=== PATIENT | female | born 1950 | race Caucasian/White ===

== ENCOUNTER 2023-03-19 18:07 | Inpatient (IN) ==
[2023-03-19] MEDS ORDERED: SODIUM CHLORIDE 0.9% 1000ML 1,000 ML IV ONE ×2 (18:43→19:22)
[2023-03-19 18:57] LABS: Basophils # (auto) 0.09 K/uL (0-0.2); Basophils % (auto) 0.5 %; Eosinophils # (auto) 0.12 K/uL (0-0.50); Eosinophils % (auto) 0.7 %; Hematocrit (blood only) 36.9 % (37.0-47.0); Hemoglobin 11.7 g/dl (12.0-16.0); Immature Granulocytes # (auto) 0.13 K/uL (0.01-0.20); Immature Granulocytes % (auto) 0.7 %; Lymphocytes % (auto) 1.6 %; Mean Corpuscular Hemoglobin 25.8 pg (25.0-34.0); Mean Corpuscular Hgb Conc 31.7 g/dL (32.0-36.0); Mean Corpuscular Volume 81.3 fL (80.0-100.0); Mean Platelet Volume 9.5 fL (9.4-12.4); Monocytes # (auto) 1.73 K/uL (0.11-0.59); Monocytes % (auto) 9.4 %; Neutrophils # (auto) 15.96 K/uL (1.40-6.50); Neutrophils % (auto) 87.1 %; Platelet Count 342 K/uL (130-400); RDW Coefficient of Variation 16.2 % (11.5-14.5); Red Blood Count 4.54 M/uL (4.20-5.40); White Blood Count 18.33 K/ul (4.8-10.8)
[2023-03-19 19:14] LABS: Albumin Globulin Ratio 1.1 (0.9-2); Albumin Level 3.8 gm/dl (3.4-5.0); BUN Creatinine Ratio 20.3 (10-20); Bilirubin,Total 0.3 mg/dl (0.2-1.0); Calcium 9.2 mg/dl (8.6-10.3); Creatinine Clr Calc Pharmacy 49.9 ml/min; Est GFR (African American) 54.1 ml/min; Est GFR (Non-African American) 46.7 ml/min; Globulin 3.6 gm/dl (2.5-4.0); Total Protein 7.4 gm/dl (6.0-8.3)
[2023-03-19] MEDS ORDERED: CEFEPIME 2,000 MG/20 ML VIAL IV STA (19:22)
[2023-03-19] MEDS ORDERED: VANCOMYCIN CONSULT ACTIVE PRN (19:22)
[2023-03-19] MEDS ORDERED: VANCOMYCIN HCL 1,750 MG in SODIUM CHLORIDE 0.9% 500 ML IV ONE (19:22)
[2023-03-19] MEDS ORDERED: SODIUM CHLORIDE 0.9% 500 ML IV ONE (20:10)
[2023-03-19] MEDS ORDERED: LACTATED RINGER'S 1,000 ML IV ONE (21:00)
--- NOTE | 2023-03-19 21:02 | Emergency Department Note ---
Impression & Plan Sepsis ED Provider Note INFORMANT: Patient and ED PROVIDER(S): Lester Christiansen MD CHIEF COMPLAINT: Fever PLAN: Disposition: Admitted Condition: Good Outpatient prescription management: none Referral: None MEDICAL DECISION MAKING: Patient presented with a complaint of fever. Her blood pressure was mildly low. Fever was resolved but she did take Tylenol prior to arrival. Sepsis work-up initiated. The patient was found to have a significant leukocytosis. Chemistry panel was unremarkable. Urinalysis is pending. The patient was started on IV fluids and when her blood pressure dropped slightly she was ordered a total that would meet the 30 mL/kg sepsis fluid. The patient was started on IV cefepime and IV vancomycin. She had improvement of her blood pressure. On reassessment she was feeling well. The patient did have an elevated lactate. Repeat lactate was reflexed. The patient had a consultation placed with Dr. Chandler Pierson, [facility]. Case was discussed and diagnostics were reviewed. He evaluated patient in the ER and admitted her for further management. Discussed with custodial operations manager requires admission After review of the information above and other included data, I feel the patient disposition. Triage Nursing notes reviewed and agree them. Vital Signs: reviewed and remarkable for hypotension Prior /Outside records reviewed: Surgery note from discharge today reviewed Differential diagnosis: Sepsis, UTI, pneumonia, metabolic, electrolyte abnormalities, cardiac sources, intracerebral event, toxicologic, neurologic, as well as other pathologies. Diagnostics, as interpreted by me: ECG: none Cardiac Monitoring: Cardiac monitoring ordered by me: The patient was placed on continuous cardiac monitoring and observed. It revealed a normal sinus rhythm at 77 beats per minute without ectopy or evidence of dysrhythmia. Medical decision rules: none Imaging studies: Deferred HPI: The patient is a 72 year old female who presents to the Emergency Room with complaints of fever. Patient had a lithotripsy and stent placement done at [facility] today. She was monitored and stated she did well. They had done for prior procedures on her in urology. The first time she had a procedure done years ago she had developed sepsis afterwards. She noted the last 3 procedures she was observed and did very well without any infectious issues. She was discharged today after doing very well postsurgery and went home. She then took her temperature this afternoon and it was 101.2. She contacted urology and was directed to the emergency department for evaluation due to her history. Patient notes a mild sore throat after anesthesia but otherwise has no other complaints. Pt denies LOC, headache, fevers, chills, diaphoresis, visual changes, neck pain, chest pain, breathing difficulties, nausea, vomiting, abdominal pain, back pain, diarrhea, numbness, focal weakness, lymphadenopathy, rash, or other complaints. PAST MEDICAL HISTORY: See Below, sepsis PAST SURGICAL HISTORY: See Below, SOCIAL HISTORY: See Below, HOME MEDICATIONS: See Below ALLERGIES: See Below VITALS: See Below PHYSICAL EXAMINATION: GENERAL: Awake, alert, tired-appearing, in no distress HENT: Normocephalic, atraumatic. Oropharynx unremarkable. EYES: Normal conjunctiva. Sclera non-icteric. NECK: Inspection normal. Non-tender. Supple. No nuchal rigidity. FROM. No masses. RESPIRATORY: Clear to auscultation. No wheezes. No rales. Normal respiratory effort. CARDIAC: Normal rate. Normal rhythm. No murmurs. No rubs. Extremities warm and well perfused. Pulses equal. No JVD. GI: Soft, non-distended. No tenderness to palpation. No rebound or guarding. No masses. RECTAL: Deferred. MUSCULOSKELETAL: Atraumatic. Chest examination reveals no tenderness. The back is symmetrical on inspection without obvious abnormality. There is no CVA tenderness to palpation. No joint edema. LOWER EXTREMITIES: Calves are equal size bilaterally and non-tender. No edema. No discoloration. NEURO: Normal sensorium. No sensory or motor deficits noted. SKIN: No rash or jaundice noted. CRITICAL CARE: I have personally spent greater than 30 minutes of critical care time in the direct management of this patient. This includes bedside care, interpretation of diagnostic studies, and testing, discussion with consultants, patient, and f amily members, and other required patient management activities. This 30 minutes is in excess of all separately billable procedures. Past Med/Surg History Medical History (Updated 03/19/23 @ 21:02 by Lester Christiansen MD) Chronic erythremia CKD (chronic kidney disease) stage 3, GFR 30-59 ml/min HLD (hyperlipidemia) HTN (hypertension) T2DM (type 2 diabetes mellitus) Surgical History (Updated 03/19/23 @ 21:01 by Meliza Meza PA-C) History of extraction of renal calculus Hx of cataract surgery Hx of tubal ligation Family History (Updated 03/19/23 @ 21:02 by Meliza Meza PA-C) Father Cancer bone cancer Sister Breast cancer Mother Hypertension Social History Smoking Status: Never smoker Hx Alcohol Use: No Hx Substance Use: No Preferred Language: Surinamese marital status: Feels Safe at Home: Yes Allergies Allergies Allergy/AdvReac Type Severity Reaction Status Date / Time cephalexin Allergy Unknown Verified 03/19/23 20:19 Home Meds Home Medications Medication Instructions Recorded Confirmed acetaminophen 325 mg tablet 975 mg PO Q6 PRN mild pain or 03/19/23 03/19/23 fever > 38 C aspirin 81 mg tablet,delayed 81 mg PO DAILY 03/19/23 03/19/23 release empagliflozin 25 mg tablet 25 mg PO DAILY 03/19/23 03/19/23 (Jardiance) fenofibrate nanocrystallized 145 145 mg PO QAM 03/19/23 03/19/23 mg tablet glipizide 10 mg tablet 20 mg PO AMPM 03/19/23 03/19/23 lisinopril 2.5 mg tablet 2.5 mg PO HS 03/19/23 03/19/23 metformin 1,000 mg tablet 1,000 mg PO BIDM 03/19/23 03/19/23 metoprolol tartrate 100 mg tablet 100 mg PO BID 03/19/23 03/19/23 multivitamin 1 tab PO DAILY 03/19/23 03/19/23 naproxen sodium 220 mg capsule 440 mg PO HS 03/19/23 03/19/23 oxybutynin chloride 5 mg tablet 5 mg PO TID PRN Bladder Spasms 03/19/23 03/19/23 rosuvastatin 20 mg tablet 20 mg PO QAM 03/19/23 03/19/23 semaglutide 14 mg tablet (Rybelsus) 14 mg PO DAILYBB 03/19/23 03/19/23 tamsulosin 0.4 mg capsule 0.4 mg PO QAM 03/19/23 03/19/23 Results & Data (ED) Vital Signs Vital Signs - 24 hr 03/19/23 18:23 03/19/23 19:15 03/19/23 19:30 Temperature 36.8 C Temperature Source Oral Pulse Rate 94 H 79 Pulse Rate [Right Apical] 79 Pulse Rate from SpO2 Sensor 79 Respiratory Rate 18 18 20 Respiratory Effort / Characteristics Non-Labored Non-Labored Spontaneous Respiratory Depth Normal Respiratory Pattern Regular Blood Pressure 109/65 89/48 L Blood Pressure [Right Arm] 98/50 L Blood Pressure Mean 79 61 Blood Pressure Mean [Right Arm] 66 Pulse Oximetry 96 94 97 Oxygen Delivery Method Room Air Room Air Room Air Sepsis Recent Fever Within 48 Hours Yes Sepsis New/Unexplained Change in Mental Status N/A Sepsis Action Taken by Nursing No Action Required 03/19/23 19:16 Temperature Temperature Source Pulse Rate 81 Pulse Rate [Right Apical] Pulse Rate from SpO2 Sensor Respiratory Rate Respiratory Effort / Characteristics Respiratory Depth Respiratory Pattern Blood Pressure Blood Pressure [Right Arm] Blood Pressure Mean Blood Pressure Mean [Right Arm] Pulse Oximetry Oxygen Delivery Method Sepsis Recent Fever Within 48 Hours Sepsis New/Unexplained Change in Mental Status Sepsis Action Taken by Nursing Laboratory Data 03/19/23 18:36 03/19/23 18:36 Lab Results 03/19/23 03/19/23 03/19/23 Range/Units 18:36 18:36 19:29 WBC 18.33 H (4.8-10.8) K/ul RBC 4.54 (4.20-5.40) M/uL Hgb 11.7 L (12.0-16.0) g/dl Hct 36.9 L (37.0-47.0) % MCV 81.3 (80.0-100.0) fL MCH 25.8 (25.0-34.0) pg MCHC 31.7 L (32.0-36.0) g/dL RDW Std Deviation 48.0 H (36.4-46.3) fL RDW Coeff of Jomar 16.2 H (11.5-14.5) % Plt Count 342 (130-400) K/uL MPV 9.5 (9.4-12.4) fL Immature Gran % (Auto) 0.7 % Neut % (Auto) 87.1 % Lymph % (Auto) 1.6 % Summers % (Auto) 9.4 % Eos % (Auto) 0.7 % Baso % (Auto) 0.5 % Neut # (Auto) 15.96 H (1.40-6.50) K/uL Lymph # (Auto) 0.30 L (1.2-3.4) K/uL Summers # (Auto) 1.73 H (0.11-0.59) K/uL Eos # (Auto) 0.12 (0-0.50) K/uL Baso # (Auto) 0.09 (0-0.2) K/uL Immature Gran # (Auto) 0.13 (0.01-0.20) K/uL Sodium 138 (136-145) mmol/L Potassium 4.0 (3.5-5.1) mmol/L Chloride 107 (98-107) mmol/L Carbon Dioxide 22 (21-32) mmol/L Anion Gap 9 (3-11) BUN 24 H (6-23) mg/dl Creatinine 1.18 (0.6-1.2) mg/dl Est Cr Clr Drug Dosing 49.9 ml/min Est GFR ( Amer) 54.1 ml/min Est GFR (Non-Af Amer) 46.7 ml/min BUN/Creatinine Ratio 20.3 H (10-20) Glucose 154 H (70-99(Fasting)) mg/dl Lactate 3.1 H* (0.4-2.0) mmol/L Calcium 9.2 (8.6-10.3) mg/dl Total Bilirubin 0.3 (0.2-1.0) mg/dl AST 24 (13-39) U/L ALT 18 (7-52) U/L Alkaline Phosphatase 48 (34-104) U/L Total Protein 7.4 (6.0-8.3) gm/dl Albumin 3.8 (3.4-5.0) gm/dl Globulin 3.6 (2.5-4.0) gm/dl Albumin/Globulin Ratio 1.1 (0.9-2) Administered Medications Vancomycin HCl 1,750 mg/ (Sodium Chloride) 535 mls @ 200 mls/hr IV NOW ONE Stop: 03/19/23 22:02 Last Admin: 03/19/23 20:11 Dose: 200 mls/hr Documented By: ROMEL Discontinued Medications Sodium Chloride (Nss 1000ml) 1,000 mls @ 999 mls/hr IV .Q1H1M ONE Stop: 03/19/23 19:43 Last Infusion: 03/19/23 20:12 Dose: 0 mls/hr Documented By: Admin: 03/19/23 19:18 Dose: 999 mls/hr Documented By: ROMEL Sodium Chloride (Nss 1000ml) 1,000 mls @ 999 mls/hr IV .Q1H1M ONE Stop: 03/19/23 20:22 Last Infusion: 03/19/23 20:33 Dose: 0 mls/hr Documented By: Admin: 03/19/23 19:31 Dose: 999 mls/hr Documented By: ROMEL Cefepime HCl (Maxipime) 2,000 mg in 20 mls @ 5 mls/min IV NOW STA; Protocol Stop: 03/19/23 19:25 Last Admin: 03/19/23 19:31 Dose: 5 mls/min Documented By: ROMEL Sodium Chloride (Nss) 500 mls @ 999 mls/hr IV .Q31M ONE Stop: 03/19/23 20:40 Last Infusion: 03/19/23 20:53 Dose: 0 mls/hr Documented By: Admin: 03/19/23 20:26 Dose: 999 mls/hr Documented By: ROMEL Discharge Plan Visit Data Chief Complaint: Fever Stated Complaint: SURGERY TODAY, FEVER 101 ED Provider: Lester Christiansen Discharge Problem: Sepsis Forms Stand Alone Forms: My [facility] Prescriptions Prescriptions: No Action glipizide 10 mg tablet 20 mg PO AMPM Rx Instructions: take with meals lisinopril 2.5 mg tablet 2.5 mg PO HS rosuvastatin 20 mg tablet 20 mg PO QAM Rybelsus 14 mg tablet 14 mg PO DAILYBB acetaminophen 325 mg tablet 975 mg PO Q6 PRN (Reason: mild pain or fever > 38 C) aspirin [Aspirin Low-Strength] 81 mg Tablet,Delayed Release (Dr/Ec) 81 mg PO DAILY fenofibrate nanocrystallized 145 mg tablet 145 mg PO QAM metformin 1,000 mg tablet 1,000 mg PO BIDM Jardiance 25 mg tablet 25 mg PO DAILY metoprolol tartrate 100 mg tablet 100 mg PO BID tamsulosin 0.4 mg Capsule 0.4 mg PO QAM Rx Instructions: new order oxybutynin chloride 5 mg tablet 5 mg PO TID PRN (Reason: Bladder Spasms) multivitamin [Multi-Vitamin] Tablet 1 tab PO DAILY naproxen sodium 220 mg Capsule 440 mg PO HS Referrals Referrals: Lulu Galvez, DO [Primary Care Provider] -
--- NOTE | 2023-03-19 21:20 | History & Physical Report ---
Date of Service March 19, 2023 Assessment & Plan (1) Sepsis: (2) S/P urological surgery: (3) T2DM (type 2 diabetes mellitus): (4) HTN (hypertension): (5) HLD (hyperlipidemia): (6) CKD (chronic kidney disease) stage 3, GFR 30-59 ml/min: Plan This is a 72-year-old female who has significant past medical history of T2DM, HTN, HLD, CKD stage III, polycythemia vera who presents to ED secondary to fever s/p urologic procedure today. Patient underwent cystourethroscopy with lithotripsy and left stent insertion by Dr. Baylee Momin MD today. Developed fever, today is POD #0. Of significance patient was diagnosed with bilateral renal stones who underwent attempted L PCNL of 02/03/23. They were unable to gain access to kidney and she received b/l ureteral stents. She then developed urosepsis and was admitted to ICU. Cultures at that time returned negative. During that hospital stay she underwent another ureteroscopy on 02/10/23 and d/c next day. She underwent 2nd look ureterscopy on 02/16 with antegrade L ureteroscopy with LL, right ureteroscopy BL stent exchange and d/c on 02/17. She underwent additional stone treatment today. Sepsis S/P urologic procedure - as noted above T2DM - well controlled a1c 6.9 on 01/2023 on regimen of metformin, Jardiance, glipizide, Rybelsus HTN- controlled on lisinopril as OP, low side in ED 2/2 sepsis HLD - statin Patient was seen and examined separately from attending physician Dr. Christopher. Detailed HPI, social, family hx, med rec and physical exam performed undersigned. Please refer to Dr. Schultz attending addendum for detailed assessment and plan. James Meza PA-C 45 minutes was spent assessing patient, performing physical exam and extensive research of patients recent hospitalizations. History of Present Illness Chief Complaint: fever s/p urologic procedure today. Primary Care Provider: Lulu Galvez DO This is a 72-year-old female who has significant past medical history of T2DM, HTN, HLD, CKD stage III, polycythemia vera who presents to ED secondary to fever s/p urologic procedure today. Patient was recently admitted at [facility] on 02/24/2023 for cystoscopy, left ureteroscopic with laser lithotripsy and basket stone removal, left ureteral stent exchange, right ureteral stent removal, left retrograde pyelogram and was performed without complication. On postop day 1 patient was stable for discharge, tolerating a diet and discharged home. Today, 03/19/2023 patient underwent ureteroscopy with lithotripsy and stent exchange on the left. She tolerated the procedure and was discharged home day of surgery. She then developed fever of 101.2. She contacted urology and was directed to come to the ED. She does complain of mild sore throat secondary to anesthesia but otherwise denies any acute concerns. She denies chills, sweats, headache, dizziness, lightheadedness, chest pain, shortness of breath, URI symptoms, nausea, vomiting, abdominal pain, or diarrhea. She does complain of some mild dysuria and hematuria which she states is normal after these procedures. In ED patient met criteria for sepsis with hypotension, leukocytosis and lactic acidosis of 3.1. She received IV fluids which improved patient to normotensive. Allergies Allergy/AdvReac Type Severity Reaction Status Date / Time cephalexin Allergy Unknown Verified 03/19/23 20:19 Home Medications Medication Instructions Recorded Confirmed Type acetaminophen 325 mg tablet 975 mg PO Q6 PRN mild pain or 03/19/23 03/19/23 History fever > 38 C aspirin 81 mg tablet,delayed 81 mg PO DAILY 03/19/23 03/19/23 History release empagliflozin 25 mg tablet 25 mg PO DAILY 03/19/23 03/19/23 History (Jardiance) fenofibrate nanocrystallized 145 145 mg PO QAM 03/19/23 03/19/23 History mg tablet glipizide 10 mg tablet 20 mg PO AMPM 03/19/23 03/19/23 History lisinopril 2.5 mg tablet 2.5 mg PO HS 03/19/23 03/19/23 History metformin 1,000 mg tablet 1,000 mg PO BIDM 03/19/23 03/19/23 History metoprolol tartrate 100 mg tablet 100 mg PO BID 03/19/23 03/19/23 History multivitamin 1 tab PO DAILY 03/19/23 03/19/23 History naproxen sodium 220 mg capsule 440 mg PO HS 03/19/23 03/19/23 History oxybutynin chloride 5 mg tablet 5 mg PO TID PRN Bladder Spasms 03/19/23 03/19/23 History rosuvastatin 20 mg tablet 20 mg PO QAM 03/19/23 03/19/23 History semaglutide 14 mg tablet (Rybelsus) 14 mg PO DAILYBB 03/19/23 03/19/23 History tamsulosin 0.4 mg capsule 0.4 mg PO QAM 03/19/23 03/19/23 History Past Med/Surg History Medical History Chronic erythremia CKD (chronic kidney disease) stage 3, GFR 30-59 ml/min HLD (hyperlipidemia) HTN (hypertension) 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 T2DM (type 2 diabetes mellitus) Surgical History History of extraction of renal calculus Hx of cataract surgery Hx of tubal ligation Family History Father Cancer bone cancer Sister Breast cancer Mother Hypertension Social History Smoking Status: Never smoker Hx Alcohol Use: Yes Alcohol type: wine Hx Substance Use: No Preferred Language: Bangladeshi Communication Ability: Effective Bridge Builder Required: No Beliefs That Will Affect Care: None marital status: Current Living Situation: Spouse Current Living Situation Comment: Lives in a home with Other Information That Helps Us Care for You: No Feels Safe at Home: Yes Safety Concerns: Feels Safe At This Time Assistive Devices: Glasses Review of Systems Review of Systems: All systems reviewed & are unremarkable except as noted in HPI & below Physical Exam Physical Exam: Constitutional: WD/WN, vitals as above, NAD, sitting up in bed, pleasant, conversing easily Head: Normocephalic, Atraumatic Eyes: PERRL, conjunctivae normal, anicteric sclerae ENMT: external ear and nose normal, oropharynx normal Neck: trachea midline, no thyromegaly normal visual inspection Respiratory: normal respiratory effort, lungs clear to auscultation, no wheeze, rales, rhonchi. Normal insp/exp effort, no accessory muscle use Cardiovascular: RRR, no murmur, no edema, bilateral obese legs with va ricosities vessels: no JVD or carotid bruit Chest: normal inspection of chest Abdomen: Obese abdomen, normal bowel sounds, soft, nontender, no hepatosplenomegaly Musculoskeletal: no cyanosis or clubbing, extremities motor strength 5/5 Skin: no rashes, warm and dry normal turgor Neurologic: PERRL, EOMI, accommodation nl, no face palsy, no dysarthria CN's II-XI intact bilaterally and moves all extremities Psychiatric: A+Ox3, euthymic affect Lymphatic: no cervical or axillary lymphadenopathy : deferred Results & Data Results & Data Vital Signs (Past 12 Hours) Vital Signs Temp Pulse Pulse Resp BP BP Pulse Ox 03/19/23 20:56 84 21 101/55 L 95 03/19/23 20:30 75 24 96 03/19/23 20:00 78 33 H 99/58 L 93 03/19/23 19:16 81 03/19/23 19:30 79 20 89/48 L 97 03/19/23 19:15 79 18 98/50 L 94 03/19/23 18:23 36.8 C 94 H 18 109/65 96 O2 Del Method 03/19/23 20:56 Room Air 03/19/23 20:30 03/19/23 20:00 Room Air 03/19/23 19:16 03/19/23 19:30 Room Air 03/19/23 19:15 Room Air 03/19/23 18:23 Room Air Medications Administered Medication List Vancomycin HCl 1,750 mg/ (Sodium Chloride) 535 mls @ 200 mls/hr IV NOW ONE Stop: 03/19/23 22:02 Last Admin: 03/19/23 20:11 Dose: 200 mls/hr Documented By: ROMEL Discontinued Medications Sodium Chloride (Nss 1000ml) 1,000 mls @ 999 mls/hr IV .Q1H1M ONE Stop: 03/19/23 19:43 Last Infusion: 03/19/23 20:12 Dose: 0 mls/hr Documented By: Admin: 03/19/23 19:18 Dose: 999 mls/hr Documented By: ROMEL Sodium Chloride (Nss 1000ml) 1,000 mls @ 999 mls/hr IV .Q1H1M ONE Stop: 03/19/23 20:22 Last Infusion: 03/19/23 20:33 Dose: 0 mls/hr Documented By: Admin: 03/19/23 19:31 Dose: 999 mls/hr Documented By: ROMEL Cefepime HCl (Maxipime) 2,000 mg in 20 mls @ 5 mls/min IV NOW STA; Protocol Stop: 03/19/23 19:25 Last Admin: 03/19/23 19:31 Dose: 5 mls/min Documented By: ROMEL Sodium Chloride (Nss) 500 mls @ 999 mls/hr IV .Q31M ONE Stop: 03/19/23 20:40 Last Infusion: 03/19/23 20:53 Dose: 0 mls/hr Documented By: Admin: 03/19/23 20:26 Dose: 999 mls/hr Documented By: ROMEL COVID-19 Results Results COVID-19 Adm Lab Results: RBC 4.54 M/uL (4.20-5.40) 03/19/23 WBC 18.33 K/ul (4.8-10.8) H 03/19/23 Hgb 11.7 g/dl (12.0-16.0) L 03/19/23 Hct 36.9 % (37.0-47.0) L 03/19/23 Plt Count 342 K/uL (130-400) 03/19/23 Neutrophils (%) (Auto) 87.1 % 03/19/23 Lymphocytes (%) (Auto) 1.6 % 03/19/23 Monocytes # (Auto) 1.73 K/uL (0.11-0.59) H 03/19/23 Eosinophils # (Auto) 0.12 K/uL (0-0.50) 03/19/23 Immature Granulocyte % (Auto) 0.7 % 03/19/23 Neutrophils # (Auto) 15.96 K/uL (1.40-6.50) H 03/19/23 Lymphocytes # (Auto) 0.30 K/uL (1.2-3.4) L 03/19/23 Monocytes # (Auto) 1.73 K/uL (0.11-0.59) H 03/19/23 Eosinophils # (Auto) 0.12 K/uL (0-0.50) 03/19/23 Basophils # (Auto) 0.09 K/uL (0-0.2) 03/19/23 Immature Granulocyte # (Auto) 0.13 K/uL (0.01-0.20) 3 Na 138 mmol/L (136-145) 03/19/23 K 4.0 mmol/L (3.5-5.1) 03/19/23 Cl 107 mmol/L (98-107) 03/19/23 CO2 22 mmol/L (21-32) 03/19/23 Anion Gap 9 (3-11) 03/19/23 BUN 24 mg/dl (6-23) H 03/19/23 Creatinine 1.18 mg/dl (0.6-1.2) 03/19/23 BUN/Creatinine Ratio 20.3 (10-20) H 03/19/23 Glucose Level 154 mg/dl (70-99(Fasting)) H 03/19/23 Ca 9.2 mg/dl (8.6-10.3) 03/19/23 Total Bilirubin 0.3 mg/dl (0.2-1.0) 03/19/23 AST/SGOT 24 U/L (13-39) 03/19/23 ALT/SGPT 18 U/L (7-52) 03/19/23 Alkaline Phosphatase 48 U/L (34-104) 03/19/23 Total Protein 7.4 gm/dl (6.0-8.3) 03/19/23 Albumin 3.8 gm/dl (3.4-5.0) 03/19/23 Globulin 3.6 gm/dl (2.5-4.0) 03/19/23 Albumin/Globulin Ratio 1.1 (0.9-2) 03/19/23 SARS-CoV-2, RNA, NAAT NEGATIVE (NEGATIVE) 03/19/23 Code Status & VTE Plan Code Status FULL CODE Supervising Physician Co-Signing Physician Notes IM ATTENDING : Patient seen and examined. History obtained from patient, family, and records. Preceding documentation by Ms. Meliza Meza PA-C reviewed. In addition : Patient also complaining of abdominal/flank pain. UA showed WBC esterase and budding Yeast CT abdomen pelvis: Left double-J ureteral stent with proximal tip in the left upper pole calyx and distal tip within the urinary bladder. Moderate perinephric stranding on the left. No other acute findings in the abdomen or pelvis. FINAL ASSESSMENT AND PLAN as follows : Severe sepsis SIRS plus lactic acidosis secondary to complicated UTI, recurrent episodes hx urolithiasis Recent instrumentation UA positive for WBC esterase and budding yeast Hypotension secondary to above Improved blood pressure after initial intervention at the ER Past history of septic shock as per records Bronchial asthma, stable DM 2 on oral medications, well-controlled as of recent hemoglobin A1c of 6.9 last January 2023 Hyperlipidemia on statin Rx Anemia, baseline hemoglobin 10-11 since last month Past history DVT as per records Past history VRE UTI as per records Medical telemetry CS, Daptomycin and Cefepime on the basis of prior microbiologic history Fluconazole for funguria ID consult Re: Complicated UTI/funguria Monitor lactic acid response to IVF Appropriate to hold antihypertensives for now given low BP Basal bolus insulin, ISS BG goal 1 10-1 40, carb count coverage Hold statin while patient on daptomycin DVT prophylaxis. Lovenox subcu if no bleed on CT Full code Patient requesting updates from providers. Chito Matute, contact #[phone]. Text document was generated using [employer] voice recognition software. It may contain grammatical or spelling errors. Kindly contact undersigned for clarification of any documentation item in question.
[2023-03-19 21:22] LABS: Magnesium 1.8 mg/dl (1.7-2.4)
[2023-03-19 23:02] LABS: Appearance Urine Turbid (Clear); Bacteria Urine Automated Negative (Negative); Bilirubin Urine Negative (Negative); Blood Urine 3+ (Negative); Color Urine Orange; Epithelial Cell Urine Auto 20-30 /lpf (0-5); Glucose Urine UA 3+ (Negative); Ketones Urine Negative (Negative); Leukocyte Esterase Urine 2+ (Negative); Nitrite Urine Negative (Negative); Protein Urine 3+ (Negative); Specific Gravity Urine 1.023 (1.000-1.030); Urobilinogen Urine Negative (Negative); WBC Urine Automated >30 /hpf (0-5)
[2023-03-19 23:13] LABS: Cast Urine Automated 0 /lpf (0-5); RBC Urine Automated >30 /hpf (0-4)
[2023-03-19] MEDS ORDERED: FLUCONAZOLE 200 MG/100 ML BAG IV STA (23:33)
[2023-03-20] MEDS ORDERED: DAPTOmycin 425 MG in SYRINGE 0 ML IV SCH
[2023-03-20] MEDS ORDERED: CARBOHYDRATES FOR HYPOGLYCEMIA PO PRN (00:32)
[2023-03-20] MEDS ORDERED: PROMETHAZINE HCL 12.5 MG in SODIUM CHLORIDE 0.9% 50 ML IV PRN (00:32)
[2023-03-20] MEDS ORDERED: GLUCOSE 40% GEL 15 GM TUBE PO PRN (00:32)
[2023-03-20] MEDS ORDERED: LORazepam 0.5 MG TAB PO PRN (00:32)
[2023-03-20] MEDS ORDERED: GLUCAGON FOR INJ 1 MG VIAL SQ PRN (00:32)
[2023-03-20] MEDS ORDERED: GLUCOSE 10 TAB/TUBE PO PRN (00:32)
[2023-03-20] MEDS ORDERED: DEXTROSE 50% 50 ML SYRINGE IV PRN (00:32)
[2023-03-20] MEDS: INSULIN ASPART PER UNIT CHARGE SC SCH ×5 (00:53→21:15)
[2023-03-20] MEDS ORDERED: OPTIRAY 350 100ml IV ONE (01:28)
[2023-03-20] MEDS ORDERED: CEFEPIME 2,000 MG in SYRINGE 0 ML IV SCH ×2 (04:00→16:00)
--- NOTE | 2023-03-20 06:25 | CT Scan Report ---
Exam(s): CT ABDOMEN + PELVIS With Contrast IV Amt: 83ml EXAM: CT Abdomen and Pelvis With Intravenous Contrast CLINICAL HISTORY: Reason for exam: abd/flank pain. TECHNIQUE: Axial computed tomography images of the abdomen and pelvis with intravenous contrast. CTDI is 12.48 mGy and DLP is 744.17 mGy-cm. Automated exposure control was utilized for the study. A dose lowering technique was utilized adhering to the principles of ALARA. CONTRAST: Patient received 83ml of IV contrast COMPARISON: No relevant prior studies available. FINDINGS: Lung bases: Bibasilar atelectasis . No mass. No consolidation. ABDOMEN: Liver: Unremarkable. No mass. Gallbladder and bile ducts: Unremarkable. No calcified stones. No ductal dilation. Pancreas: Unremarkable. No mass. No ductal dilation. Spleen: Subcentimeter hypodensity in the spleen, nonspecific finding. Adrenals: Unremarkable. No mass. Kidneys and ureters: Left double-J ureteral stent with proximal tip in the left upper pole calyx and distal tip within the urinary bladder. Moderate perinephric stranding on the left. Multiple simple renal cysts bilaterally. Stomach and bowel: Grossly Unremarkable. No obstruction. PELVIS: Appendix: No findings to suggest acute appendicitis. Bladder: Unremarkable. No mass. Reproductive: Unremarkable as visualized. ABDOMEN and PELVIS: Intraperitoneal space: No free air. No significant fluid collection. Bones/joints: Mild lumbar spondylosis. No acute fracture. No dislocation. Soft tissues: Unremarkable. Vasculature: Mild atherosclerosis. No abdominal aortic aneurysm. Lymph nodes: No enlarged lymph nodes. IMPRESSION: Left double-J ureteral stent with proximal tip in the left upper pole calyx and distal tip within the urinary bladder. Moderate perinephric stranding on the left. No other acute findings in the abdomen or pelvis. Electronically signed by: Gurpreet Bullard M.D. 03/20/23 06:23 AM
[2023-03-20] MEDS ORDERED: LACTATED RINGER'S 1,000 ML IV ONE (07:00)
[2023-03-20 07:42] LABS: Basophils # (auto) 0.05 K/uL (0-0.2); Basophils % (auto) 0.4 %; Eosinophils # (auto) 0.12 K/uL (0-0.50); Eosinophils % (auto) 0.9 %; Hemoglobin 9.5 g/dl (12.0-16.0); Immature Granulocytes # (auto) 0.06 K/uL (0.01-0.20); Immature Granulocytes % (auto) 0.5 %; Lymphocytes # (auto) 0.64 K/uL (1.2-3.4); Lymphocytes % (auto) 4.8 %; Mean Corpuscular Hgb Conc 31.7 g/dL (32.0-36.0); Mean Platelet Volume 9.5 fL (9.4-12.4); Monocytes # (auto) 1.12 K/uL (0.11-0.59); Monocytes % (auto) 8.4 %; Neutrophils # (auto) 11.32 K/uL (1.40-6.50); Platelet Count 243 K/uL (130-400); RDW Coefficient of Variation 16.1 % (11.5-14.5); RDW Standard Deviation 48.4 fL (36.4-46.3); Red Blood Count 3.66 M/uL (4.20-5.40); White Blood Count 13.31 K/ul (4.8-10.8)
[2023-03-20 08:03] LABS: Calcium 8.1 mg/dl (8.6-10.3); Creatinine Clr Calc Pharmacy 61.7 ml/min; Est GFR (African American) 66.1 ml/min; Potassium 3.7 mmol/L (3.5-5.1)
[2023-03-20] MEDS: D5W AND NSS 1,000 ML IV SCH ×2 (08:12→21:15)
[2023-03-20] MEDS: TAMSULOSIN HCL 0.4 MG CAP PO SCH (08:13)
[2023-03-20] MEDS: FENOFIBRATE NANOCRYSTALLIZED 145 MG TABLET PO SCH (08:13)
[2023-03-20] MEDS: ASPIRIN 81 MG ECTAB PO SCH (08:13)
[2023-03-20] MEDS: ENOXAPARIN INJ 40 MG/0.4 ML SYR SQ SCH (08:14)
[2023-03-20] MEDS: MULTIVITAMIN TAB PO SCH (08:14)
[2023-03-20] MEDS: CEFEPIME 2,000 MG in SYRINGE 0 ML IV SCH ×2 (14:15→23:29)
--- NOTE | 2023-03-20 14:49 | Hospitalist Progress Note ---
Date of Service March 20, 2023 Assessment & Plan (1) Sepsis: (2) S/P urological surgery: (3) T2DM (type 2 diabetes mellitus): (4) HTN (hypertension): (5) HLD (hyperlipidemia): (6) CKD (chronic kidney disease) stage 3, GFR 30-59 ml/min: Plan per admitting service notes with addendum: This is a 72-year-old female who has significant past medical history of T2DM, HTN, HLD, CKD stage III, polycythemia vera who presents to ED secondary to fever s/p urologic procedure today. Patient underwent cystourethroscopy with lithotripsy and left stent insertion by Dr. Baylee Momin MD today. Developed fever, today is POD #0. Of significance patient was diagnosed with bilateral renal stones who underwent attempted L PCNL of 02/03/23. They were unable to gain access to kidney and she received b/l ureteral stents. She then developed urosepsis and was admitted to ICU. Cultures at that time returned negative. During that hospital stay she underwent another ureteroscopy on 02/10/23 and d/c next day. She underwent 2nd look ureterscopy on 02/16 with antegrade L ureteroscopy with LL, right ureteroscopy BL stent exchange and d/c on 02/17. She underwent additional stone treatment today. Severe sepsis SIRS plus lactic acidosis secondary to complicated UTI, recurrent episodes hx urolithiasis Recent instrumentation UA positive for WBC esterase and budding yeast -- Urine culture: Pending -- Blood cultures: Pending Currently afebrile, leukocytosis improving Continue daptomycin plus cefepime Discussed with urologist Dr. Baylee Larson Past urine cultures reviewed, as of February 24, patient grew Purvi glabrata, resistant to fluconazole Discussed with pharmacy service--possible starting Amphotericin ID consulted-awaiting recommendations Hypotension secondary to above Improved blood pressure after initial intervention at the ER Past history of septic shock as per records -- Resolved Bronchial asthma, stable DM 2 on oral medications, well-controlled as of recent hemoglobin A1c of 6.9 last January 2023 --Hypoglycemic this morning, did not eat yesterday, D5 NSS ordered Monitor BSG's closely Hyperlipidemia on statin Rx Anemia, baseline hemoglobin 10-11 since last month Past history DVT as per records Past history VRE UTI as per records Hold statin while patient on daptomycin DVT prophylaxis. Lovenox subcu if no bleed on CT Full code plan of care discussed with patient and her Ray at the bedside in detail and at length all questions answered they are understanding, agreeable, comfortable with the plan of care Admission and Anticipated Discharge Date Admission Date: March 19, 2023 Subjective Follow-up for sepsis, following cystoscopy, left ureteral stent exchange, etc. Seen resting in bed, sitting up, comfortable, not in distress Patient's Ray at the bedside visiting States she feels improved overall No abdominal pain, flank or back pain, nausea or vomiting No fever or chills since yesterday no chest pain, dyspnea, palpitations, dizziness No other new symptoms Review of Systems Review of Systems: all noted and negative except for above Physical Exam Physical Exam: General- oriented x 3, not in distress, speaks in sentences with no effort or accessory muscle use Eyes- anicteric Neck- no JVD Lungs- clear breath sounds bilaterally, no rales/wheezes Heart- normal rate, regular rhythm; no murmurs Abdomen- normal bowel sounds, nondistended, soft, nontender Extremities- no pretibial edema, no calf tenderness Neuro- alert, oriented x 3; no gross focal neurologic deficits Skin- warm & dry Results & Data Results & Data Vital Signs (Past 12 Hours) Vital Signs Temp Pulse Pulse Resp BP Pulse Ox O2 Del Method 03/20/23 11:48 37.1 C 76 20 115/68 92 Room Air 03/20/23 08:47 66 03/20/23 06:45 37.0 C 84 18 117/58 L 97 Room Air 03/20/23 06:34 77 03/20/23 03:47 36.9 C 70 20 110/64 94 Room Air all noted and reviewed including below
[2023-03-20] MEDS ORDERED: diphenhydrAMINE 50 MG/ML VIAL IV SCH (16:30)
[2023-03-20] MEDS ORDERED: AMPHOTERICIN B CONSULT ACTIVE **For IV Formulations PRN (16:30)
[2023-03-20] MEDS ORDERED: diphenhydrAMINE 50 MG/ML VIAL IV ONE (17:00)
[2023-03-20] MEDS: ACETAMINOPHEN 500 MG TAB PO SCH (17:05)
[2023-03-20] MEDS: DEXTROSE 5% IV SCH (17:26)
[2023-03-20] MEDS: AMPHOTERICIN B IV SCH (17:26)
[2023-03-20] MEDS: ACETAMINOPHEN 325 MG TAB PO PRN (21:15)
[2023-03-21] MEDS: CEFEPIME 2,000 MG in SYRINGE 0 ML IV SCH ×3 (05:32→23:50)
[2023-03-21] MEDS: INSULIN ASPART PER UNIT CHARGE SC SCH ×4 (08:27→20:45)
[2023-03-21] MEDS ORDERED: FLUCONAZOLE 100 MG TAB PO SCH (09:00)
[2023-03-21] MEDS: oxyBUTYnin chloride 5 MG TAB PO PRN (09:31)
[2023-03-21] MEDS: ENOXAPARIN INJ 40 MG/0.4 ML SYR SQ SCH (09:31)
[2023-03-21] MEDS: FENOFIBRATE NANOCRYSTALLIZED 145 MG TABLET PO SCH (09:31)
[2023-03-21] MEDS: TAMSULOSIN HCL 0.4 MG CAP PO SCH (09:31)
[2023-03-21] MEDS: MULTIVITAMIN TAB PO SCH (09:31)
[2023-03-21] MEDS: ASPIRIN 81 MG ECTAB PO SCH (09:31)
[2023-03-21] MEDS: D5W AND NSS 1,000 ML IV SCH (10:06)
[2023-03-21 10:24] LABS: Basophils # (auto) 0.02 K/uL (0-0.2); Basophils % (auto) 0.3 %; Eosinophils % (auto) 4.3 %; Hematocrit (blood only) 31.2 % (37.0-47.0); Hemoglobin 9.7 g/dl (12.0-16.0); Immature Granulocytes # (auto) 0.14 K/uL (0.01-0.20); Lymphocytes # (auto) 0.49 K/uL (1.2-3.4); Mean Corpuscular Hemoglobin 25.1 pg (25.0-34.0); Mean Corpuscular Hgb Conc 31.1 g/dL (32.0-36.0); Mean Corpuscular Volume 80.8 fL (80.0-100.0); Mean Platelet Volume 9.9 fL (9.4-12.4); Monocytes % (auto) 12.8 %; Neutrophils # (auto) 5.16 K/uL (1.40-6.50); Neutrophils % (auto) 73.6 %; Platelet Count 265 K/uL (130-400); RDW Coefficient of Variation 16.7 % (11.5-14.5); RDW Standard Deviation 49.1 fL (36.4-46.3); Red Blood Count 3.86 M/uL (4.20-5.40); White Blood Count 7.01 K/ul (4.8-10.8)
[2023-03-21 10:30] LABS: BUN Creatinine Ratio 18.4 (10-20); Calcium 8.5 mg/dl (8.6-10.3); Creatinine Clr Calc Pharmacy 63.1 ml/min; Est GFR (African American) 67.7 ml/min; Est GFR (Non-African American) 58.4 ml/min; Potassium 3.4 mmol/L (3.5-5.1)
[2023-03-21 14:37] LABS: Magnesium 1.9 mg/dl (1.7-2.4)
[2023-03-21] MEDS: diphenhydrAMINE 50 MG/ML VIAL IV SCH (16:59)
--- NOTE | 2023-03-21 17:07 | Hospitalist Progress Note ---
Date of Service March 21, 2023 Assessment & Plan (1) Sepsis: (2) S/P urological surgery: (3) T2DM (type 2 diabetes mellitus): (4) HTN (hypertension): (5) HLD (hyperlipidemia): (6) CKD (chronic kidney disease) stage 3, GFR 30-59 ml/min: Plan per admitting service notes with addendum: This is a 72-year-old female who has significant past medical history of T2DM, HTN, HLD, CKD stage III, polycythemia vera who presents to ED secondary to fever s/p urologic procedure today. Patient underwent cystourethroscopy with lithotripsy and left stent insertion by Dr. Baylee Momin MD today. Developed fever, today is POD #0. Of significance patient was diagnosed with bilateral renal stones who underwent attempted L PCNL of 02/03/23. They were unable to gain access to kidney and she received b/l ureteral stents. She then developed urosepsis and was admitted to ICU. Cultures at that time returned negative. During that hospital stay she underwent another ureteroscopy on 02/10/23 and d/c next day. She underwent 2nd look ureterscopy on 02/16 with antegrade L ureteroscopy with LL, right ureteroscopy BL stent exchange and d/c on 02/17. She underwent additional stone treatment today. Severe sepsis SIRS plus lactic acidosis secondary to complicated UTI, recurrent episodes hx urolithiasis Recent instrumentation UA positive for WBC esterase and budding yeast -- Urine culture: Pending -- Blood cultures: Pending Currently afebrile, leukocytosis improving Continue daptomycin plus cefepime Discussed with urologist Dr. Baylee Larson Past urine cultures reviewed, as of February 24, patient grew Purvi glabrata, resistant to fluconazole Discussed with pharmacy service--possible starting Amphotericin ID consulted-awaiting recommendations 03/21 afebrile, WBC normalized clinically improving continue Cefepime + Amphotericin ff up cultures Hypotension secondary to above Improved blood pressure after initial intervention at the ER Past history of septic shock as per records -- Resolved Bronchial asthma, stable DM 2 on oral medications, well-controlled as of recent hemoglobin A1c of 6.9 last January 2023 - BSGs ok oral intake good - dc IV fluids Hyperlipidemia on statin Rx Anemia, baseline hemoglobin 10-11 since last month Past history DVT as per records Past history VRE UTI as per records Hold statin while patient on daptomycin DVT prophylaxis. Lovenox subcu if no bleed on CT Full code plan of care discussed with patient all questions answered she is understanding, agreeable, comfortable with the plan of care Admission and Anticipated Discharge Date Admission Date: March 19, 2023 Subjective ff up for UTI, etc seen resting in bed, comfortable not in distress states she feels ok overall denies abdominal/flank/back pain no nausea/vomiting no chest pain, dyspnea, palpitations, dizziness no other symptoms Review of Systems Review of Systems: all noted and negative except for above Physical Exam Physical Exam: General- oriented x 3, not in distress, speaks in sentences with no effort or accessory muscle use Eyes- anicteric Neck- no JVD Lungs- clear BS BL Heart- normal rate, regular rhythm; no murmurs Abdomen- normal bowel sounds, nondistended, soft, no tenderness Extremities- no pretibial edema, no calf tenderness Neuro- alert, oriented x 3; no gross focal neurologic deficits Skin- warm & dry Results & Data Results & Data Vital Signs (Past 12 Hours) Vital Signs Temp Pulse Resp BP Pulse Ox O2 Del Method 03/21/23 15:26 37.3 C 89 18 150/52 H 94 Room Air 03/21/23 08:05 37.2 C 88 18 153/82 H 94 Room Air all noted and reviewed including below
[2023-03-21] MEDS: ACETAMINOPHEN 500 MG TAB PO SCH (17:32)
[2023-03-21] MEDS: AMPHOTERICIN B IV SCH (17:33)
[2023-03-21] MEDS: DEXTROSE 5% IV SCH (17:33)
[2023-03-21] MEDS: ACETAMINOPHEN 325 MG TAB PO PRN (20:45)
[2023-03-22] MEDS: CEFEPIME 2,000 MG in SYRINGE 0 ML IV SCH ×2 (05:51→14:13)
[2023-03-22] MEDS: FENOFIBRATE NANOCRYSTALLIZED 145 MG TABLET PO SCH (08:08)
[2023-03-22] MEDS: ASPIRIN 81 MG ECTAB PO SCH (08:09)
[2023-03-22] MEDS: MULTIVITAMIN TAB PO SCH (08:09)
[2023-03-22] MEDS: TAMSULOSIN HCL 0.4 MG CAP PO SCH (08:09)
[2023-03-22] MEDS: INSULIN ASPART PER UNIT CHARGE SC SCH ×4 (08:11→20:48)
[2023-03-22] MEDS: ENOXAPARIN INJ 40 MG/0.4 ML SYR SQ SCH (08:11)
[2023-03-22 08:59] LABS: Albumin Level 3.5 gm/dl (3.4-5.0); BUN Creatinine Ratio 16.5 (10-20); Bilirubin Direct 0.1 mg/dl (0-0.2); Bilirubin,Total 0.3 mg/dl (0.2-1.0); Calcium 9.4 mg/dl (8.6-10.3); Est GFR (African American) 80.5 ml/min; Est GFR (Non-African American) 69.4 ml/min; Potassium 3.9 mmol/L (3.5-5.1); Total Protein 7.3 gm/dl (6.0-8.3)
[2023-03-22] MEDS: diphenhydrAMINE 50 MG/ML VIAL IV SCH (14:12)
[2023-03-22] MEDS: ACETAMINOPHEN 500 MG TAB PO SCH (14:12)
[2023-03-22] MEDS: DEXTROSE 5% IV SCH (15:10)
[2023-03-22] MEDS: AMPHOTERICIN B IV SCH (15:10)
--- NOTE | 2023-03-22 15:56 | Hospitalist Progress Note ---
Date of Service March 22, 2023 Assessment & Plan (1) Sepsis: (2) S/P urological surgery: (3) T2DM (type 2 diabetes mellitus): (4) HTN (hypertension): (5) HLD (hyperlipidemia): (6) CKD (chronic kidney disease) stage 3, GFR 30-59 ml/min: Plan per admitting service notes with addendum: This is a 72-year-old female who has significant past medical history of T2DM, HTN, HLD, CKD stage III, polycythemia vera who presents to ED secondary to fever s/p urologic procedure today. Patient underwent cystourethroscopy with lithotripsy and left stent insertion by Dr. Baylee Momin MD today. Developed fever, today is POD #0. Of significance patient was diagnosed with bilateral renal stones who underwent attempted L PCNL of 02/03/23. They were unable to gain access to kidney and she received b/l ureteral stents. She then developed urosepsis and was admitted to ICU. Cultures at that time returned negative. During that hospital stay she underwent another ureteroscopy on 02/10/23 and d/c next day. She underwent 2nd look ureterscopy on 02/16 with antegrade L ureteroscopy with LL, right ureteroscopy BL stent exchange and d/c on 02/17. She underwent additional stone treatment today. Severe sepsis SIRS plus lactic acidosis secondary to complicated UTI, recurrent episodes hx urolithiasis Recent instrumentation UA positive for WBC esterase and budding yeast -- Urine culture: Pending -- Blood cultures: Pending Currently afebrile, leukocytosis improving Continue daptomycin plus cefepime Discussed with urologist Dr. Baylee Larson Past urine cultures reviewed, as of February 24, patient grew Purvi glabrata, resistant to fluconazole Discussed with pharmacy service--possible starting Amphotericin ID consulted-awaiting recommendations 03/22 afebrile, WBC normalized clinically improving daily Urine cx: (+) yeast, Purvi not albicans/dub continue IV Amphotericin Day 02/03 d/c IV Cefepime Hypotension secondary to above Improved blood pressure after initial intervention at the ER Past history of septic shock as per records -- Resolved Bronchial asthma, stable DM 2 on oral medications, well-controlled as of recent hemoglobin A1c of 6.9 last January 2023 - BSGs ok oral intake good - dc IV fluids Hyperlipidemia on statin Rx Anemia, baseline hemoglobin 10-11 since last month Past history DVT as per records DVT prophylaxis. Lovenox subcu Full code Disposition: anticipate dc home tomorrow with IV Amphotericin til Thurs plan of care discussed with patient and her in detail and at length all questions answered they are understanding, agreeable, comfortable with the plan of care Admission and Anticipated Discharge Date Admission Date: March 19, 2023 Subjective ff up for UTI, etc seen resting in bed, comfortable states she feels improved daily no abdominal/flank/back pain no nausea/vomiting no fever/chills, urinary symptoms no other symptoms Review of Systems Review of Systems: all noted and negative except for above Physical Exam Physical Exam: General- oriented x 3, not in distress, speaks in sentences with no effort or accessory muscle use Eyes- anicteric Neck- no JVD Lungs- clear BS BL Heart- normal rate, regular rhythm; no murmurs Abdomen- normal bowel sounds, nondistended, soft, nontender Extremities- no pretibial edema, no calf tenderness Neuro- alert, oriented x 3; no gross focal neurologic deficits Skin- warm & dry Results & Data Results & Data Vital Signs (Past 12 Hours) Vital Signs Temp Pulse Resp BP Pulse Ox O2 Del Method 03/22/23 14:46 36.8 C 68 18 148/77 H 94 Room Air 03/22/23 11:06 Room Air 03/22/23 11:00 37.0 C 96 H 18 137/77 95 Room Air 03/22/23 07:22 36.9 C 72 18 147/74 H 94 Room Air all noted and reviewed including below
[2023-03-23] MEDS: MELATONIN 3 MG TAB PO PRN ×2 (00:42→21:05)
[2023-03-23 08:37] LABS: BUN Creatinine Ratio 12.6 (10-20); Calcium 9.2 mg/dl (8.6-10.3); Creatinine Clr Calc Pharmacy 69.7 ml/min; Est GFR (African American) 78.2 ml/min; Est GFR (Non-African American) 67.5 ml/min; Magnesium 1.9 mg/dl (1.7-2.4); Potassium 3.5 mmol/L (3.5-5.1)
[2023-03-23] MEDS: TAMSULOSIN HCL 0.4 MG CAP PO SCH (08:56)
[2023-03-23] MEDS: FENOFIBRATE NANOCRYSTALLIZED 145 MG TABLET PO SCH (08:56)
[2023-03-23] MEDS: ASPIRIN 81 MG ECTAB PO SCH (08:57)
[2023-03-23] MEDS: MULTIVITAMIN TAB PO SCH (08:57)
[2023-03-23] MEDS: ENOXAPARIN INJ 40 MG/0.4 ML SYR SQ SCH (08:58)
[2023-03-23] MEDS: INSULIN ASPART PER UNIT CHARGE SC SCH ×4 (09:04→20:27)
[2023-03-23] MEDS: diphenhydrAMINE 50 MG/ML VIAL IV SCH (12:05)
[2023-03-23] MEDS: ACETAMINOPHEN 500 MG TAB PO SCH (12:05)
[2023-03-23 12:30] LABS: A calco-baum cmplx NotReported Not Detected (NotDetected); Bact fragilis Not Reported Not Detected (NotDetected); C auris Not Reported Not Detected (NotDetected); Calbicans Not Reported Not Detected (NotDetected); Candida glabrata Not Reported DETECTED (NotDetected); Candida krusei Not Reported Not Detected (NotDetected); Cneoformans/gatti Not Reported Not Detected (NotDetected); Cparapsilosis Not Reported Not Detected (NotDetected); Ctropicalis Not Reported Not Detected (NotDetected); E cloacae compx Not Reported Not Detected (NotDetected); Efaecalis Not Reported Not Detected (NotDetected); Efaecium Not Reported Not Detected (NotDetected); Enterobacterales Not Reported Not Detected (NotDetected); Escherichia coli Not Reported Not Detected (NotDetected); H influenzae Not Reported Not Detected (NotDetected); K aerogenes Not Reported Not Detected (NotDetected); Koxytoca Not Reported Not Detected (NotDetected); Kpneumoniae grp Not Reported Not Detected (NotDetected); Lmonocyt Not Reported Not Detected (NotDetected); N meningitidis Not Reported Not Detected (NotDetected); P aeruginosa Not Reported Not Detected (NotDetected); Proteus spp Not Reported Not Detected (NotDetected); Salmonella spp Not Reported Not Detected (NotDetected); Smarcescens Not Reported Not Detected (NotDetected); Staph lugdunensis Not Reported Not Detected (NotDetected); Staph spp. Not Reported Not Detected (NotDetected); Staphaureus Not Reported Not Detected (NotDetected); Staphepi Not Reported Not Detected (NotDetected); Stenmaltophilia Not Reported Not Detected (NotDetected); Strep agal(GrpB) Not Reported Not Detected (NotDetected); Strep pneum Not Reported Not Detected (NotDetected); Strep pyog (GrpA) Not Reported Not Detected (NotDetected); Strep spp Not Reported Not Detected (NotDetected)
[2023-03-23 12:55] LABS: Candida glabrata DETECTED (NotDetected)
[2023-03-23] MEDS: DEXTROSE 5% IV SCH (13:10)
[2023-03-23] MEDS: AMPHOTERICIN B IV SCH (13:10)
--- NOTE | 2023-03-23 19:44 | Hospitalist Progress Note ---
Date of Service March 23, 2023 Assessment & Plan (1) Sepsis: (2) S/P urological surgery: (3) T2DM (type 2 diabetes mellitus): (4) HTN (hypertension): (5) HLD (hyperlipidemia): (6) CKD (chronic kidney disease) stage 3, GFR 30-59 ml/min: Plan per admitting service notes with addendum: This is a 72-year-old female who has significant past medical history of T2DM, HTN, HLD, CKD stage III, polycythemia vera who presents to ED secondary to fever s/p urologic procedure today. Patient underwent cystourethroscopy with lithotripsy and left stent insertion by Dr. Baylee Momin MD today. Developed fever, today is POD #0. Of significance patient was diagnosed with bilateral renal stones who underwent attempted L PCNL of 02/03/23. They were unable to gain access to kidney and she received b/l ureteral stents. She then developed urosepsis and was admitted to ICU. Cultures at that time returned negative. During that hospital stay she underwent another ureteroscopy on 02/10/23 and d/c next day. She underwent 2nd look ureterscopy on 02/16 with antegrade L ureteroscopy with LL, right ureteroscopy BL stent exchange and d/c on 02/17. She underwent additional stone treatment today. Severe sepsis SIRS plus lactic acidosis secondary to complicated UTI, recurrent episodes hx urolithiasis Recent instrumentation UA positive for WBC esterase and budding yeast -- Urine culture: Pending -- Blood cultures: Pending Currently afebrile, leukocytosis improving Continue daptomycin plus cefepime Discussed with urologist Dr. Baylee Larson Past urine cultures reviewed, as of February 24, patient grew Purvi glabrata, resistant to fluconazole Discussed with pharmacy service--possible starting Amphotericin ID consulted-awaiting recommendations 03/22 afebrile, WBC normalized clinically improving daily Urine cx: (+) yeast, Purvi not albicans/dub continue IV Amphotericin Day 3/7 d/c IV Cefepime 03/23 Remains clinically stable, afebrile Blood culture: Positive yeast, Purvi glabrata based on serologic studies Discussed with infectious disease service Continue IV Amphotericin x7 days, then transition to IV micafungin/caspofungin for another 7 days Check echocardiogram, if positive for endocarditis will need longer course of micafungin/caspofungin Patient reports intermittent brief episodes of seeing some floaters We will discuss with claims sorter Hypotension secondary to above Improved blood pressure after initial intervention at the ER Past history of septic shock as per records -- Resolved Bronchial asthma, stable DM 2 on oral medications, well-controlled as of recent hemoglobin A1c of 6.9 last January 2023 - BSGs ok oral intake good - dc IV fluids Hyperlipidemia on statin Rx Anemia, baseline hemoglobin 10-11 since last month Past history DVT as per records DVT prophylaxis. Lovenox subcu Full code Disposition: Pending, goal is to transition patient to home with home health services, IV antifungal infusion at home plan of care discussed with patient and her in detail and at length all questions answered they are understanding, agreeable, comfortable with the plan of care Admission and Anticipated Discharge Date Admission Date: March 19, 2023 Subjective Follow-up for UTI secondary to Purvi glabrata, fungemia, etc. Seen resting in bed, comfortable, not in distress States she feels fine overall Denies abdominal pain, problems in urination, fevers or chills no chest pain, dyspnea, palpitations, dizziness No other symptoms Review of Systems Review of Systems: all noted and negative except for above Physical Exam Physical Exam: General- oriented x 3, not in distress, speaks in sentences with no effort or accessory muscle use Eyes- anicteric Neck- no JVD Lungs- clear BS BL Heart- normal rate, regular rhythm; no murmurs Abdomen- normal bowel sounds, nondistended, soft, nontender Extremities- no pretibial edema, no calf tenderness Neuro- alert, oriented x 3; no gross focal neurologic deficits Skin- warm & dry Results & Data Results & Data Vital Signs (Past 12 Hours) Vital Signs Temp Pulse Resp BP Pulse Ox O2 Del Method 03/23/23 19:28 36.8 C 89 16 146/71 H 96 Room Air 03/23/23 16:00 36.6 C 77 16 135/80 95 Room Air all noted and reviewed including below
[2023-03-23] MEDS: traMADol HCL 50 MG TABLET PO PRN (21:05)
[2023-03-24 07:31] LABS: Basophils # (auto) 0.05 K/uL (0-0.2); Basophils % (auto) 0.6 %; Eosinophils # (auto) 0.23 K/uL (0-0.50); Eosinophils % (auto) 2.9 %; Hematocrit (blood only) 31.3 % (37.0-47.0); Hemoglobin 10.1 g/dl (12.0-16.0); Immature Granulocytes # (auto) 0.06 K/uL (0.01-0.20); Immature Granulocytes % (auto) 0.8 %; Lymphocytes # (auto) 1.03 K/uL (1.2-3.4); Lymphocytes % (auto) 12.9 %; Mean Corpuscular Hemoglobin 25.1 pg (25.0-34.0); Mean Corpuscular Hgb Conc 32.3 g/dL (32.0-36.0); Mean Corpuscular Volume 77.9 fL (80.0-100.0); Mean Platelet Volume 9.5 fL (9.4-12.4); Monocytes # (auto) 1.34 K/uL (0.11-0.59); Monocytes % (auto) 16.8 %; Neutrophils # (auto) 5.29 K/uL (1.40-6.50); Platelet Count 346 K/uL (130-400); RDW Coefficient of Variation 15.6 % (11.5-14.5); RDW Standard Deviation 44.3 fL (36.4-46.3); Red Blood Count 4.02 M/uL (4.20-5.40)
[2023-03-24 07:39] LABS: Albumin Level 3.3 gm/dl (3.4-5.0); BUN Creatinine Ratio 15.6 (10-20); Bilirubin Direct 0.1 mg/dl (0-0.2); Bilirubin,Total 0.3 mg/dl (0.2-1.0); Calcium 9.2 mg/dl (8.6-10.3); Creatinine Clr Calc Pharmacy 67.3 ml/min; Est GFR (African American) 75.1 ml/min; Est GFR (Non-African American) 64.8 ml/min; Magnesium 1.9 mg/dl (1.7-2.4); Potassium 3.4 mmol/L (3.5-5.1); Total Protein 6.7 gm/dl (6.0-8.3)
[2023-03-24] MEDS: MULTIVITAMIN TAB PO SCH (08:46)
[2023-03-24] MEDS: TAMSULOSIN HCL 0.4 MG CAP PO SCH (08:47)
[2023-03-24] MEDS: FENOFIBRATE NANOCRYSTALLIZED 145 MG TABLET PO SCH (08:47)
[2023-03-24] MEDS: ASPIRIN 81 MG ECTAB PO SCH (08:47)
[2023-03-24] MEDS: ENOXAPARIN INJ 40 MG/0.4 ML SYR SQ SCH (08:48)
[2023-03-24] MEDS: INSULIN ASPART PER UNIT CHARGE SC SCH ×4 (08:52→20:40)
[2023-03-24] MEDS: ACETAMINOPHEN 500 MG TAB PO SCH (12:51)
[2023-03-24] MEDS: diphenhydrAMINE 50 MG/ML VIAL IV SCH ×2 (12:52→13:20)
[2023-03-24] MEDS ORDERED: POTASSIUM CHLORIDE CRTAB 20 MEQ TABCR PO STA (12:57)
[2023-03-24] MEDS: AMPHOTERICIN B IV SCH (13:45)
[2023-03-24] MEDS: DEXTROSE 5% IV SCH (13:45)
--- NOTE | 2023-03-24 19:54 | Hospitalist Progress Note ---
Date of Service March 24, 2023 Assessment & Plan (1) Sepsis: (2) S/P urological surgery: (3) T2DM (type 2 diabetes mellitus): (4) HTN (hypertension): (5) HLD (hyperlipidemia): (6) CKD (chronic kidney disease) stage 3, GFR 30-59 ml/min: Plan per admitting service notes with addendum: This is a 72-year-old female who has significant past medical history of T2DM, HTN, HLD, CKD stage III, polycythemia vera who presents to ED secondary to fever s/p urologic procedure today. Patient underwent cystourethroscopy with lithotripsy and left stent insertion by Dr. Baylee Momin MD today. Developed fever, today is POD #0. Of significance patient was diagnosed with bilateral renal stones who underwent attempted L PCNL of 02/03/23. They were unable to gain access to kidney and she received b/l ureteral stents. She then developed urosepsis and was admitted to ICU. Cultures at that time returned negative. During that hospital stay she underwent another ureteroscopy on 02/10/23 and d/c next day. She underwent 2nd look ureterscopy on 02/16 with antegrade L ureteroscopy with LL, right ureteroscopy BL stent exchange and d/c on 02/17. She underwent additional stone treatment today. Purvi glabrata UTI, fungemia Severe sepsis SIRS plus lactic acidosis secondary to complicated UTI, recurrent episodes hx urolithiasis Status post cystoscopy, stent placement March 27, [address] Baylee Larson Past urine cultures reviewed, as of February 24, patient grew Purvi glabrata, resistant to fluconazole Discussed with pharmacy service--possible starting Amphotericin ID consulted-awaiting recommendations afebrile, WBC normalized Urine cx: (+) yeast, Purvi not albicans/dub Blood culture: Positive yeast, Purvi glabrata based on serologic studies Discussed with infectious disease service with Dr. Pino Continue IV Amphotericin x7 days, then transition to IV micafungin for another 7 days to complete 14-day course Transthoracic echocardiogram: No vegetation or mass Patient reports intermittent brief episodes of seeing some floaters-discussed with [facility] tight rope walker Dr. 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 Christy Larson [facility] upon discharge Will need ophthalmology clinic evaluation in 1 to 2 weeks at [facility] Hypotension secondary to above Improved blood pressure after initial intervention at the ER Past history of septic shock as per records -- Resolved Bronchial asthma, stable DM 2 on oral medications, well-controlled as of recent hemoglobin A1c of 6.9 last January 2023 -Admitted with hypoglycemia - BSGs ok oral intake good -May need to adjust diabetic medications to prevent Hyperlipidemia on statin Rx Anemia, baseline hemoglobin 10-11 since last month Past history DVT as per records DVT prophylaxis. Lovenox subcu Full code Disposition: Anticipate discharge to home on March 26 Then starting March 27, IV micafungin 100 mg daily to be received at [facility] for 7 days plan of care discussed with patient and her in detail and at length all questions answered they are understanding, agreeable, comfortable with the plan of care Admission and Anticipated Discharge Date Admission Date: March 19, 2023 Subjective Follow-up for Purvi in the urine and bloodstream, etc. Seen resting in bed, sitting up, comfortable, not in distress States she feels fine overall No abdominal pain, nausea or vomiting, chest pain, shortness of breath No dysuria, fevers or chills No other symptom Review of Systems Review of Systems: all noted and negative except for above Physical Exam Physical Exam: General- oriented x 3, not in distress, speaks in sentences with no effort or accessory muscle use Eyes- anicteric Neck- no JVD Lungs- clear breath sounds bilaterally, no crackles, no wheezing bilaterally Heart- normal rate, regular rhythm; no murmurs Abdomen- normal bowel sounds, nondistended, soft, no tenderness Extremities- no pretibial edema, no calf tenderness Neuro- alert, oriented x 3; no gross focal neurologic deficits Skin- warm & dry Results & Data Results & Data Vital Signs (Past 12 Hours) Vital Signs Temp Pulse Resp BP Pulse Ox O2 Del Method 03/24/23 16:22 36.7 C 80 18 146/88 H 95 Room Air all noted and reviewed including below
[2023-03-24] MEDS: ACETAMINOPHEN 325 MG TAB PO PRN (20:43)
[2023-03-24] MEDS: MELATONIN 3 MG TAB PO PRN (20:44)
[2023-03-25] MEDS: INSULIN ASPART PER UNIT CHARGE SC SCH ×4 (08:29→20:52)
[2023-03-25] MEDS: FENOFIBRATE NANOCRYSTALLIZED 145 MG TABLET PO SCH (08:29)
[2023-03-25] MEDS: TAMSULOSIN HCL 0.4 MG CAP PO SCH (08:30)
[2023-03-25] MEDS: MULTIVITAMIN TAB PO SCH (08:30)
[2023-03-25] MEDS: ASPIRIN 81 MG ECTAB PO SCH (08:30)
[2023-03-25] MEDS: ENOXAPARIN INJ 40 MG/0.4 ML SYR SQ SCH (08:31)
[2023-03-25 08:39] LABS: BUN Creatinine Ratio 14.4 (10-20); Calcium 9.2 mg/dl (8.6-10.3); Creatinine Clr Calc Pharmacy 54.5 ml/min; Est GFR (African American) 58.3 ml/min; Est GFR (Non-African American) 50.3 ml/min; Magnesium 2.1 mg/dl (1.7-2.4); Potassium 3.6 mmol/L (3.5-5.1)
[2023-03-25] MEDS ORDERED: TAMSULOSIN HCL 0.4 MG CAP PO SCH (09:00)
[2023-03-25] MEDS: ACETAMINOPHEN 500 MG TAB PO SCH (12:41)
[2023-03-25] MEDS: diphenhydrAMINE 50 MG/ML VIAL IV SCH (12:42)
[2023-03-25] MEDS: DEXTROSE 5% IV SCH (13:43)
[2023-03-25] MEDS: AMPHOTERICIN B IV SCH (13:43)
--- NOTE | 2023-03-25 14:41 | Hospitalist Progress Note ---
Date of Service March 25, 2023 Assessment & Plan (1) Sepsis: (2) S/P urological surgery: (3) T2DM (type 2 diabetes mellitus): (4) HTN (hypertension): (5) HLD (hyperlipidemia): (6) CKD (chronic kidney disease) stage 3, GFR 30-59 ml/min: Plan This is a 72-year-old female who has significant past medical history of T2DM, HTN, HLD, CKD stage III, polycythemia vera who presents to ED secondary to fever s/p urologic procedure today. On Day of Admission: Patient underwent cystourethroscopy with lithotripsy and left stent insertion by Dr. Baylee Momin MD today. Developed fever, today is POD #0. Of significance patient was diagnosed with bilateral renal stones who underwent attempted L PCNL of 02/03/23. They were unable to gain access to kidney and she received b/l ureteral stents. She then developed urosepsis and was admitted to ICU. Cultures at that time returned negative. During that hospital stay she underwent another ureteroscopy on 02/10/23 and d/c next day. She underwent 2nd look ureterscopy on 02/16 with antegrade L ureteroscopy with LL, right ureteroscopy BL stent exchange and d/c on 02/17. She underwent additional stone treatment today. Dee glabrata UTI, fungemia Severe sepsis SIRS plus lactic acidosis secondary to complicated UTI, recurrent episodes hx urolithiasis Status post cystoscopy, stent placement March 27, [address] Baylee Larson Past urine cultures reviewed, as of February 24, patient grew Dee glabrata, resistant to fluconazole Urine cx: (+) yeast, Dee not albicans/dub Blood culture: Positive yeast, Dee glabrata based on serologic studies Continue IV Amphotericin x7 days until 03/27, then transition to IV capsofungin through april 05 to complete 14-day course, 70mg IV day one and then 50mg IV daily until complete Consult IV team for US guided IV placement Transthoracic echocardiogram: No vegetation or mass Patient reports intermittent brief episodes of seeing some floaters-discussed with [facility] weathercaster Dr. 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 Pino ID Will need stent removal after IV antifungal course, please notify Dr. Christy Larson [facility] upon discharge Will need ophthalmology clinic evaluation in 1 to 2 weeks at [facility] will obtain weekly bmp while on antibiotic Hypotension secondary to above Improved blood pressure after initial intervention at the ER Past history of septic shock as per records -- Resolved Bronchial asthma, stable DM 2 on oral medications, well-controlled as of recent hemoglobin A1c of 6.9 last January 2023 BSGs have been okay Hyperlipidemia on statin Rx Anemia, baseline hemoglobin 10-11 since last month Past history DVT as per records DVT prophylaxis. Lovenox subcu Full code Disposition: Anticipate discharge to home on March 26 A total of 55 minutes was spent with greater than 50% of that time personally viewing all current laboratory work and diagnostic imaging studies obtained in the ED. Additionally, I was able to view the patients past medication reconciliation and history with direct visualization in the patients chart. Included in the time above, a portion of that time was spent assessing the patient while discussing and collaborating with specialists, if necessary, and making medical decision making on treatment plan. All of the above was collaborated with Dr. aSenz. Please see addendum for further details. Admission and Anticipated Discharge Date Admission Date: March 19, 2023 Supervising Physician Co-Signing Physician Notes Patient was seen and examined independently at bedside in presence of her . Chart reviewed. Case discussed with Meliza KRUGER and agree with the documentation above with regards to HPI, exam and A/P. In summary, this is a72 years old female s/p recent lithotripsy and left ureteral stenting at [facility] admitted with dee glabrata UTI and fungemia. On amphotericin per ID, completing course tomorrow after that she will be on caspofungin for 1 more week at [facility] to complete 2 week course. She will follow up with urology and ophthalmology at [facility] upon discharge. She denies any issues currently. No visual symptoms. All questions were answered. Rest as per the note above. Subjective Patient was seen and examined in room 350-2. Follow-up fungemia. She is sitting at bedside and has no complaints. She ate all her breakfast. Denies fever, chills, sweats, lightheadedness, dizziness, chest pain, shortness breath, nausea, vomiting, abdominal pain. Review of Systems Review of Systems: All systems reviewed & are unremarkable except as noted in HPI & below Physical Exam Physical Exam: Gen: WD/WN, NAD, A&O x3 HEENT: Normocephalic, atraumatic, conjunctivae moist, sclerae anicteric, mucous membranes moist. Lung: Clear to Auscultation bilaterally, no wheezes/rales/rhonchi Heart: Regular rate, regular rhythm, no murmurs, rubs, or gallops Abdomen: Soft, NT, ND +BS x 4 Extremities: No edema Skin: Warm, no rash, negative turgor. Results & Data Results & Data Vital Signs (Past 12 Hours) Vital Signs Temp Pulse Resp BP Pulse Ox O2 Del Method 03/25/23 14:35 36.7 C 78 16 128/74 95 Room Air 03/25/23 07:52 Room Air 03/25/23 07:15 36.9 C 81 16 132/73 94 Room Air Laboratory Results [facility] 03/25/23 06:11 Sodium 136 Potassium 3.6 Chloride 106 Carbon Dioxide 22 BUN 16 Creatinine 1.11 Glucose 125 H Calcium 9.2 Medications Administered Medication List Acetaminophen (Acetaminophen 325 Mg Tab) 650 mg PO Q4H PRN PRN Reason: Pain or Fever Stop: 04/19/23 00:31 Last Admin: 03/24/23 20:43 Dose: 650 mg Documented By: Admin: 03/21/23 20:45 Dose: 650 mg Documented By: Admin: 03/20/23 21:15 Dose: 650 mg Documented By: LAT Acetaminophen (Acetaminophen 500 Mg Tab) 500 mg PO Q24H [facility] Stop: 04/19/23 16:29 Last Admin: 03/25/23 12:41 Dose: 500 mg Documented By: Admin: 03/24/23 12:51 Dose: 500 mg Documented By: Admin: 03/23/23 12:05 Dose: 500 mg Documented By: AANaima Admin: 03/22/23 14:12 Dose: 500 mg Documented By: Admin: 03/21/23 17:32 Dose: 500 mg Documented By: Admin: 03/20/23 17:05 Dose: 500 mg Documented By: ATTILA Aspirin (Aspirin 81 Mg Ectab) 81 mg PO DAILY [facility]IS[facility] Stop: 04/19/23 08:59 Last Admin: 03/25/23 08:30 Dose: 81 mg Documented By: Admin: 03/24/23 08:47 Dose: 81 mg Documented By: Admin: 03/23/23 08:57 Dose: 81 mg Documented By: Admin: 03/22/23 08:09 Dose: 81 mg Documented By: Admin: 03/21/23 09:31 Dose: 81 mg Documented By: Admin: 03/20/23 08:13 Dose: 81 mg Documented By: ATTILA Diphenhydramine HCl (Diphenhydramine 50 Mg/Ml Vial) 25 mg IV Q24H [facility] Stop: 04/20/23 16:29 Last Admin: 03/25/23 12:42 Dose: 25 mg Documented By: Admin: 03/24/23 13:20 Dose: 25 mg Documented By: Admin: 03/23/23 12:05 Dose: 25 mg Documented By: [facility] Admin: 03/22/23 14:12 Dose: 25 mg Documented By: Admin: 03/21/23 16:59 Dose: 25 mg Documented By: ANTONIO Enoxaparin Sodium (Enoxaparin Inj 40 Mg/0.4 Ml Syr) [facility] Stop: 04/19/23 08:59 Last Admin: 03/25/23 08:31 Dose: 40 mg Documented By: Admin: 03/24/23 08:48 Dose: 40 mg Documented By: Admin: 03/23/23 08:58 Dose: 40 mg Documented By: [facility] Admin: 03/22/23 08:11 Dose: 40 mg Documented By: Admin: 03/21/23 09:31 Dose: 40 mg Documented By: [facility] Admin: 03/20/23 08:14 Dose: 40 mg Documented By: ATTILA Fenofibrate (Fenofibrate Nanocrystallized 145 Mg Tablet) 145 mg PO QAM [facility] Stop: 04/19/23 08:59 Last Admin: 03/25/23 08:29 Dose: 145 mg Documented By: Admin: 03/24/23 08:47 Dose: 145 mg Documented By: Admin: 03/23/23 08:56 Dose: 145 mg Documented By: Admin: 03/22/23 08:08 Dose: 145 mg Documented By: Admin: 03/21/23 09:31 Dose: 145 mg Documented By: Admin: 03/20/23 08:13 Dose: 145 mg Documented By: ATTILA Amphotericin B 50 mg/ Dextrose 500 mls @ 125 mls/hr IV Q24H [facility] Stop: 03/26/23 23:59 Last Admin: 03/25/23 13:43 Dose: 125 mls/hr Documented By: DANNY Insulin Aspart (Insulin Aspart Per Unit Charge) 0 units SC ACHS [facility] Stop: 04/19/23 00:31 Last Admin: 03/25/23 12:25 Dose: Not Given Documented By: Admin: 03/25/23 08:29 Dose: Not Given Documented By: Admin: 03/24/23 20:40 Dose: 1 units Documented By: ZACH Co-signed By: JEROMY Admin: 03/24/23 17:56 Dose: 1 units Documented By: DANNY Co-signed By: CARMEN Admin: 03/24/23 12:59 Dose: Not Given Documented By: Admin: 03/24/23 08:52 Dose: 1 units Documented By: DANNY Co-signed By: CARMEN Admin: 03/23/23 20:27 Dose: 1 units Documented By: PETER Co-signed By: MANDY Admin: 03/23/23 17:50 Dose: 1 units Documented By: MINNIE Co-signed By: CARMEN Admin: 03/23/23 12:47 Dose: Not Given Documented By: Admin: 03/23/23 09:04 Dose: 1 units Documented By: MINNIE Co-signed By: CARMEN Admin: 03/22/23 20:48 Dose: 1 units Documented By: ZACH Co-signed By: KIMBERLY Admin: 03/22/23 16:48 Dose: 1 units Documented By: JASSON Co-signed By: RADHA Admin: 03/22/23 11:32 Dose: Not Given Documented By: Admin: 03/22/23 08:11 Dose: Not Given Documented By: Admin: 03/21/23 20:45 Dose: 2 units Documented By: BUNNY Co-signed By: [id number] Admin: 03/21/23 17:02 Dose: Not Given Documented By: Admin: 03/21/23 12:56 Dose: Not Given Documented By: Admin: 03/21/23 08:27 Dose: Not Given Documented By: Admin: 03/20/23 21:15 Dose: 2 units Documented By: BUNNY Co-signed By: MARTY Admin: 03/20/23 16:52 Dose: Not Given Documented By: Admin: 03/20/23 11:41 Dose: Not Given Documented By: Admin: 03/20/23 08:07 Dose: Not Given Documented By: Admin: 03/20/23 00:53 Dose: Not Given Documented By: JHONNY Lorazepam (Lorazepam 0.5 Mg Tab) 0.5 mg PO TID PRN PRN Reason: Anxiety Stop: 04/19/23 00:31 Last Admin: 03/23/23 02:47 Dose: 0.5 mg Documented By: ZACH Melatonin (Melatonin 3 Mg Tab) 3 mg PO HS PRN PRN Reason: Sleep Stop: 04/22/23 00:28 Last Admin: 03/24/23 20:44 Dose: 3 mg Documented By: Admin: 03/23/23 21:05 Dose: 3 mg Documented By: Admin: 03/23/23 00:42 Dose: 3 mg Documented By: ZACH Multivitamins (Multivitamin Tab) 1 tab PO DAILY FRANSISCA Stop: 04/19/23 08:59 Last Admin: 03/25/23 08:30 Dose: 1 tab Documented By: Admin: 03/24/23 08:46 Dose: 1 tab Documented By: Admin: 03/23/23 08:57 Dose: 1 tab Documented By: Admin: 03/22/23 08:09 Dose: 1 tab Documented By: Admin: 03/21/23 09:31 Dose: 1 tab Documented By: Admin: 03/20/23 08:14 Dose: 1 tab Documented By: ATTILA Oxybutynin Chloride (Oxybutynin Chloride 5 Mg Tab) 5 mg PO TID PRN PRN Reason: Bladder Spasms Stop: 04/19/23 00:31 Last Admin: 03/21/23 09:31 Dose: 5 mg Documented By: CHAN Tamsulosin HCl (Tamsulosin Hcl 0.4 Mg Cap) 0.4 mg PO QAM [facility] Stop: 04/19/23 08:59 Last Admin: 03/25/23 08:30 Dose: 0.4 mg Documented By: Admin: 03/24/23 08:47 Dose: 0.4 mg Documented By: Admin: 03/23/23 08:56 Dose: 0.4 mg Documented By: Admin: 03/22/23 08:09 Dose: 0.4 mg Documented By: Admin: 03/21/23 09:31 Dose: 0.4 mg Documented By: Admin: 03/20/23 08:13 Dose: 0.4 mg Documented By: ATTILA Tramadol HCl (Tramadol Hcl 50 Mg Tablet) 25 - 50 mg PO Q4H PRN PRN Reason: Pain Stop: 04/19/23 00:31 Last Admin: 03/23/23 21:05 Dose: 50 mg Documented By: PETER Discontinued Medications Diphenhydramine HCl (Diphenhydramine 50 Mg/Ml Vial) 25 mg IV NOW ONE Stop: 03/20/23 17:01 Last Admin: 03/20/23 17:05 Dose: 25 mg Documented By: ATTILA Diphenhydramine HCl (Diphenhydramine 50 Mg/Ml Vial) 25 mg IV Q24H [facility] Stop: 04/19/23 16:29 Last Admin: 03/20/23 16:54 Dose: Not Given Documented By: ATTILA Sodium Chloride (Nss 1000ml) 1,000 mls @ 999 mls/hr IV .Q1H1M ONE Stop: 03/19/23 19:43 Last Infusion: 03/19/23 20:12 Dose: 0 mls/hr Documented By: Admin: 03/19/23 19:18 Dose: 999 mls/hr Documented By: ROMEL Sodium Chloride (Nss 1000ml) 1,000 mls @ 999 mls/hr IV .Q1H1M ONE Stop: 03/19/23 20:22 Last Infusion: 03/19/23 20:33 Dose: 0 mls/hr Documented By: Admin: 03/19/23 19:31 Dose: 999 mls/hr Documented By: ROMEL Vancomycin HCl 1,750 mg/ (Sodium Chloride) 535 mls @ 200 mls/hr IV NOW ONE Stop: 03/19/23 22:02 Last Admin: 03/19/23 20:11 Dose: 200 mls/hr Documented By: ROMEL Cefepime HCl (Maxipime) 2,000 mg in 20 mls @ 5 mls/min IV NOW STA; Protocol Stop: 03/19/23 19:25 Last Admin: 03/19/23 19:31 Dose: 5 mls/min Documented By: ROMEL Sodium Chloride (Nss) 500 mls @ 999 mls/hr IV .Q31M ONE Stop: 03/19/23 20:40 Last Infusion: 03/19/23 20:53 Dose: 0 mls/hr Documented By: Admin: 03/19/23 20:26 Dose: 999 mls/hr Documented By: ROMEL Lactated Ringer's (Lr) 1,000 mls @ 100 mls/hr IV .Q10H ONE Stop: 03/20/23 06:59 Last Infusion: 03/20/23 08:16 Dose: 0 mls/hr Documented By: Infusion: 03/20/23 01:00 Dose: 100 mls/hr Documented By: Admin: 03/19/23 22:25 Dose: 200 mls/hr Documented By: ROMEL Daptomycin 425 mg/ Syringe 8.5 mls @ 4.25 mls/min IV Q24H [facility]IS[facility]; Protocol Stop: 03/30/23 00:00 Last Admin: 03/20/23 00:52 Dose: 4.25 mls/min Documented By: JHONNY Cefepime HCl 2,000 mg/ Syringe 20 mls @ 5 mls/min IV Q8H [facility]IS[facility]; Protocol Stop: 03/30/23 03:59 Last Admin: 03/20/23 04:16 Dose: 5 mls/min Documented By: JHONNY Fluconazole (Diflucan) 200 mg in 100 mls @ 100 mls/hr IV NOW STA; Protocol Stop: 03/20/23 00:32 Last Infusion: 03/20/23 03:24 Dose: 0 mls/hr Documented By: Admin: 03/20/23 00:52 Dose: 100 mls/hr Documented By: JHONNY Lactated Ringer's (Lr) 1,000 mls @ 80 mls/hr IV .[id number] ONE Stop: 03/20/23 19:29 Last Admin: 03/20/23 08:16 Dose: Not Given Documented By: ATTILA Dextrose/Sodium Chloride (D5w And Nss) 1,000 mls @ 80 mls/hr IV .[id number] [facility] Stop: 04/19/23 07:59 Last Infusion: 03/21/23 11:02 Dose: 0 mls/hr Documented By: Admin: 03/21/23 10:06 Dose: 80 mls/hr Documented By: Infusion: 03/21/23 09:45 Dose: 80 mls/hr Documented By: Admin: 03/20/23 21:15 Dose: 80 mls/hr Documented By: Infusion: 03/20/23 21:04 Dose: 0 mls/hr Documented By: Admin: 03/20/23 08:12 Dose: 80 mls/hr Documented By: ATTILA Cefepime HCl 2,000 mg/ Syringe 20 mls @ 5 mls/min IV Q8H FRANSISCA; Protocol Stop: 03/30/23 12:59 Last Admin: 03/22/23 14:13 Dose: 5 mls/min Documented By: Admin: 03/22/23 05:51 Dose: 5 mls/min Documented By: Admin: 03/21/23 23:50 Dose: 5 mls/min Documented By: Admin: 03/21/23 14:13 Dose: 5 mls/min Documented By: Admin: 03/21/23 05:32 Dose: 5 mls/min Documented By: Admin: 03/20/23 23:29 Dose: 5 mls/min Documented By: Admin: 03/20/23 14:15 Dose: 5 mls/min Documented By: ATTILA Amphotericin B 50 mg/ Dextrose 500 mls @ 125 mls/hr IV Q24H [facility] Stop: 03/24/23 16:59 Last Infusion: 03/24/23 18:26 Dose: 0 mls/hr Documented By: Admin: 03/24/23 13:45 Dose: 125 mls/hr Documented By: Infusion: 03/23/23 18:34 Dose: 0 mls/hr Documented By: Admin: 03/23/23 13:10 Dose: 125 mls/hr Documented By: AANaima Infusion: 03/22/23 19:13 Dose: 0 mls/hr Documented By: Admin: 03/22/23 15:10 Dose: 125 mls/hr Documented By: Infusion: 03/22/23 00:33 Dose: 0 mls/hr Documented By: Admin: 03/21/23 17:33 Dose: 82 mls/hr Documented By: Infusion: 03/20/23 23:43 Dose: 0 mls/hr Documented By: Admin: 03/20/23 17:26 Dose: 82 mls/hr Documented By: ATTILA Ioversol (Optiray 350 100ml) 83 ml IV ONCE ONE Stop: 03/20/23 01:29 Last Admin: 03/20/23 01:29 Dose: 83 ml Documented By: LUCILA Potassium Chloride (Potassium Chloride Crtab 20 Meq Tabcr) 40 meq PO NOW STA Stop: 03/24/23 12:58 Last Admin: 03/24/23 13:59 Dose: 40 meq Documented By: DANNY
[2023-03-25] MEDS: MELATONIN 3 MG TAB PO PRN (20:29)
[2023-03-25] MEDS: traMADol HCL 50 MG TABLET PO PRN (20:29)
[2023-03-26 06:23] LABS: Calcium 9.1 mg/dl (8.6-10.3); Creatinine Clr Calc Pharmacy 47.6 ml/min; Est GFR (African American) 49.5 ml/min; Est GFR (Non-African American) 42.7 ml/min; Magnesium 2.1 mg/dl (1.7-2.4); Potassium 3.6 mmol/L (3.5-5.1)
[2023-03-26] MEDS: MULTIVITAMIN TAB PO SCH (09:13)
[2023-03-26] MEDS: oxyBUTYnin chloride 5 MG TAB PO PRN (09:14)
[2023-03-26] MEDS: FENOFIBRATE NANOCRYSTALLIZED 145 MG TABLET PO SCH (09:14)
[2023-03-26] MEDS: TAMSULOSIN HCL 0.4 MG CAP PO SCH (09:14)
[2023-03-26] MEDS: ASPIRIN 81 MG ECTAB PO SCH (09:14)
[2023-03-26] MEDS: ENOXAPARIN INJ 40 MG/0.4 ML SYR SQ SCH (09:14)
[2023-03-26] MEDS: INSULIN ASPART PER UNIT CHARGE SC SCH ×2 (09:19→12:42)
--- NOTE | 2023-03-26 12:12 | Discharge Summary ---
Date of Service March 26, 2023 Admission HPI Per Admitting Provider This is a 72-year-old female who has significant past medical history of T2DM, HTN, HLD, CKD stage III, polycythemia vera who presents to ED secondary to fever s/p urologic procedure today. Patient was recently admitted at [facility] on 02/24/2023 for cystoscopy, left ureteroscopic with laser lithotripsy and basket stone removal, left ureteral stent exchange, right ureteral stent removal, left retrograde pyelogram and was performed without complication. On postop day 1 patient was stable for discharge, tolerating a diet and discharged home. Today, 03/19/2023 patient underwent ureteroscopy with lithotripsy and stent exchange on the left. She tolerated the procedure and was discharged home day of surgery. She then developed fever of 101.2. She contacted urology and was directed to come to the ED. She does complain of mild sore throat secondary to anesthesia but otherwise denies any acute concerns. She denies chills, sweats, headache, dizziness, lightheadedness, chest pain, shortness of breath, URI symptoms, nausea, vomiting, abdominal pain, or diarrhea. She does complain of some mild dysuria and hematuria which she states is normal after these procedures. In ED patient met criteria for sepsis with hypotension, leukocytosis and lactic acidosis of 3.1. She received IV fluids which improved patient to normotensive. Admission Exam Per Admitting Provider Constitutional: WD/WN, vitals as above, NAD, sitting up in bed, pleasant, conversing easily Head: Normocephalic, Atraumatic Eyes: PERRL, conjunctivae normal, anicteric sclerae ENMT: external ear and nose normal, oropharynx normal Neck: trachea midline, no thyromegaly normal visual inspection Respiratory: normal respiratory effort, lungs clear to auscultation, no wheeze, rales, rhonchi. Normal insp/exp effort, no accessory muscle use Cardiovascular: RRR, no murmur, no edema, bilateral obese legs with varicosities vessels: no JVD or carotid bruit Chest: normal inspection of chest Abdomen: Obese abdomen, normal bowel sounds, soft, nontender, no hepatosplenomegaly Musculoskeletal: no cyanosis or clubbing, extremities motor strength 5/5 Skin: no rashes, warm and dry normal turgor Neurologic: PERRL, EOMI, accommodation nl, no face palsy, no dysarthria CN's II-XI intact bilaterally and moves all extremities Psychiatric: A+Ox3, euthymic affect Lymphatic: no cervical or axillary lymphadenopathy : deferred Principal Diagnosis Purvi glabrata UTI with fungemia, severe sepsis in setting of recent lithotripsy and left stent insertion Discharge Exam General: Sitting comfortably in bed, not in distress, on room air HEENT: EOMI, HO, MMM Chest: Clear breath sounds bilaterally, no wheezes or crackles CVS: Regular rate and rhythm, normal heart sounds, no murmur Abdomen: Soft, non tender, not distended, normal bowel sounds Neuro: Awake, alert, oriented, conversing well, non focal Extremities: No cyanosis, clubbing or edema Discharge Data Allergies Allergy/AdvReac Type Severity Reaction Status Date / Time cephalexin Allergy Unknown Verified 03/19/23 20:19 Consultations 03/19/23 20:42 ED Decision to Admit Stat 03/19/23 23:34 Consult Infectious Diseases Routine Ordered Studies 03/19/23 22:22 CT abd pelvis IV con only Stat Hospital Course (1) Sepsis: (2) S/P urological surgery: (3) T2DM (type 2 diabetes mellitus): (4) HTN (hypertension): (5) HLD (hyperlipidemia): (6) CKD (chronic kidney disease) stage 3, GFR 30-59 ml/min: Plan This is a 72-year-old female who has significant past medical history of T2DM, HTN, HLD, CKD stage III, polycythemia vera who presents to ED on 03/19 secondary to fever s/p urologic procedure the same day. On Day of Admission: Patient underwent cystourethroscopy with lithotripsy and left stent insertion by Dr. Baylee Momin MD today. Developed fever at POD #0. Of significance patient was diagnosed with bilateral renal stones who underwent attempted L PCNL of 02/03/23. They were unable to gain access to kidney and she received b/l ureteral stents. She then developed urosepsis and was admitted to ICU. Cultures at that time returned negative. During that hospital stay she underwent another ureteroscopy on 02/10/23 and d/c next day. She underwent 2nd look ureterscopy on 02/16 with antegrade L ureteroscopy with LL, right ureteroscopy BL stent exchange and d/c on 02/17. She underwent additional stone treatment on 03/19 Purvi glabrata UTI, fungemia Severe sepsis SIRS plus lactic acidosis secondary to complicated UTI, recurrent episodes hx urolithiasis Status post cystoscopy, stent placement March 19, 2023 Urine cx: (+) yeast, Purvi not albicans/dub Blood culture: Positive yeast, Purvi glabrata based on serologic studies Discussed with urologist Dr. Baylee Larson and ID Treated with 7 days of amphotericin B inhouse and being discharged on caspofungin to be given at [facility] for total of 14 day course per ID Discharge plan: Continue Amphotericin IV as inpatient through , March 26, d/c in evening Then starting March 27, IV Capsofungin 70mg IV day 1, then 50mg IV daily through 04/05 to complete 14 day treatment from negative blood culture (03/23) Discussed with Dr. Pino ID Will need stent removal after IV antifungal course, please notify Dr. Christy Larson [facility] upon discharge Will need ophthalmology clinic evaluation in 1 to 2 weeks at [facility] Obtain weekly BMP while on antibiotic Hypotension secondary to above- resolved. Bronchial asthma, stable DM 2 on oral medications,well-controlled as of recent hemoglobin A1c of 6.9 last January 2023 Hyperlipidemia on statin Rx Anemia,baseline hemoglobin 10-11 since last month Patient is comfortable and stable for discharge home. All questions were answered. Total Time Total Time Spent Total Time Spent (In Minutes): 40 Discharge Plan Discharge Items Patient Disposition: Home - Self-Care Reason For Visit: SEPSIS Discharge Diagnosis: Purvi glabrata UTI with fungemia, severe sepsis in setting of recent lithotripsy and left stent insertion at [facility] Activity: Resume your previous activity Non-emergency contact: Primary Care Provider and Urologist Call non-emergency contact if: you have any medication questions, your symptoms worsen and you have a fever Follow-up/Referrals: Catarino Harrell DO [Outside Practitioners] - (Date & Time 04/02/2023 8:30 AM Provider Catarino Harrell DO Department Ophthalmology, [facility] ) Lulu Galvez DO [Primary Care Provider] - (Date & Time 04/01/2023 10:00 AM Provider Lulu Galvez DO Department [facility] [place] ) Diet: Carb Consistent or DM2 and Heart Healthy Addtl Attending Provider Instructions: Continue your IV antifungal medication for the next 7 days starting tomorrow at [facility] Recommend checking your blood work (BMP) in the next 3 days to monitor your kidney function and follow up with your family doctor. Your blood pressure and heart rate have been stable off of your blood pressure medications. Continue checking your blood pressure at home or [facility] if possible and follow up with your family doctor regarding when you can resume them. Recommend starting your metoprolol at a lower dose to prevent the heart rate dropping down too low- your family doctor will guide you on that. Follow up with your urology and eye doctor at [facility] Follow up with your family doctor Pending Studies at Discharge: No Stand-Alone Forms: My [facility] [employer], Smoking Cessation Medications and DC Order Prescriptions: New micafungin 100 mg recon soln 100 mg IV DAILY 7 Days Qty: 7 0RF Rx Instructions: administer over 60 mins March 27- April 02, 2023 Continued glipizide 10 mg tablet 20 mg PO AMPM Rx Instructions: take with meals rosuvastatin 20 mg tablet 20 mg PO QAM Rybelsus 14 mg tablet 14 mg PO DAILYBB acetaminophen 325 mg tablet 975 mg PO Q6 PRN (Reason: mild pain or fever > 38 C) aspirin [Aspirin Low-Strength] 81 mg Tablet,Delayed Release (Dr/Ec) 81 mg PO DAILY fenofibrate nanocrystallized 145 mg tablet 145 mg PO QAM metformin 1,000 mg tablet 1,000 mg PO BIDM Jardiance 25 mg tablet 25 mg PO DAILY tamsulosin 0.4 mg Capsule 0.4 mg PO QAM Rx Instructions: new order oxybutynin chloride 5 mg tablet 5 mg PO TID PRN (Reason: Bladder Spasms) multivitamin [Multi-Vitamin] Tablet 1 tab PO DAILY Held lisinopril 2.5 mg tablet 2.5 mg PO HS Hold Instructions: Resume on 04/02/23. Until seen by PCP metoprolol tartrate 100 mg tablet 100 mg PO BID Hold Instructions: Resume on 04/02/23. until seen by PCP Discontinued naproxen sodium 220 mg Capsule 440 mg PO HS Discharge Orders: Discharge Order (Routine); Ordered 03/26/23 Ordered By: Fred Prater/Other Patient Handouts: Understanding Deep Vein Thrombosis, Preventing Deep Vein Thrombosis, Understanding Sepsis Admission Data Admit Date/Time: 03/19/23 22:24 Attending Provider: Fred Saenz Admit Provider: Chandler Pierson Primary Care Provider: Lulu Galvez Other Providers: Chandler Pierson ; Srinivasa Corcoran ; Oliver Alcazar ; Giovanni Alonzo I. ; Nick Paniagua II ; Kaelyn Sanford ; Tacos Michel ; Juaquin Flores ; Matthew Pino ; Meliza Meza Other Interventions: Discharge Summary Assessment (RN) Last Done: 03/26/23 07:44
[2023-03-26] MEDS: diphenhydrAMINE 50 MG/ML VIAL IV SCH (13:50)
[2023-03-26] MEDS: DEXTROSE 5% IV SCH (13:50)
[2023-03-26] MEDS: ACETAMINOPHEN 500 MG TAB PO SCH (13:50)
[2023-03-26] MEDS: AMPHOTERICIN B IV SCH (13:50)
== END 2023-03-26 17:59 | disposition home or self-care (01) | DRG 698 ==
LOC: ED 18:07 → 2W 22:24 → SUATTDRO 22:24 → 2W 23:41 → 3W 03-22 17:49

== ENCOUNTER 2023-03-31 12:37 | Inpatient (IN) ==
[2023-03-31] MEDS ORDERED: SODIUM CHLORIDE 0.9% 1000ML 1,000 ML IV SCH (13:00)
--- NOTE | 2023-03-31 13:32 | XRay Report ---
XR chest 1V portable HISTORY: 72 years-old Female Sepsis acute weakness with altered mental status COMPARISON: CT 03/20/2023 TECHNIQUE: AP view of the chest FINDINGS: Cardiac silhouette is enlarged. No pneumothorax, pleural effusion, airspace consolidation or pulmonar y edema. Bones of the chest appear grossly intact. Mild chronic interstitial coarsening of the lung b ases. IMPRESSION: No acute process. ACT 112: Negative or not required by law. The above report was generated using voice recognition software. It may contain grammatical, syntax o r spelling errors. Electronically signed by: Goldy Darling M.D. 03/31/2023 1:31 PM
--- NOTE | 2023-03-31 14:29 | CT Scan Report ---
CT head/brain wo con CLINICAL HISTORY: 72 years-old Female with dizziness weakness. Acute dizziness with weakness TECHNIQUE: Multiple axial CT images of the head were obtained without contrast. A dose lowering tech nique was utilized adhering to the principles of ALARA. CT DOSE: 823.94 mGycm COMPARISON: None. FINDINGS: No acute intracranial hemorrhage, midline shift, intracranial mass, hydrocephalus, territorial ischem ia or abnormal extra-axial collection. Involutional changes with chronic microvascular ischemic disea se. The calvarium is intact. Hyperostosis frontalis interna. Prior bilateral lens repair. The paranasal sinuses, mastoid air cells, and middle ear cavities are clear. IMPRESSION: No acute intracranial abnormality. ACT 112: Negative or not required by law. The above report was generated using voice recognition software. It may contain grammatical, syntax o r spelling errors. Electronically signed by: Goldy Darling M.D. 03/31/2023 2:28 PM
[2023-03-31 14:33] LABS: Basophils # (auto) 0.05 K/uL (0-0.2); Basophils % (auto) 0.5 %; Eosinophils # (auto) 0.03 K/uL (0-0.50); Eosinophils % (auto) 0.3 %; Hematocrit (blood only) 29.1 % (37.0-47.0); Hemoglobin 9.3 g/dl (12.0-16.0); Immature Granulocytes # (auto) 0.11 K/uL (0.01-0.20); Immature Granulocytes % (auto) 1.1 %; Lymphocytes # (auto) 0.91 K/uL (1.2-3.4); Lymphocytes % (auto) 8.8 %; Mean Corpuscular Hemoglobin 25.3 pg (25.0-34.0); Mean Corpuscular Volume 79.3 fL (80.0-100.0); Mean Platelet Volume 9.2 fL (9.4-12.4); Monocytes # (auto) 0.82 K/uL (0.11-0.59); Monocytes % (auto) 7.9 %; Neutrophils # (auto) 8.43 K/uL (1.40-6.50); Neutrophils % (auto) 81.4 %; Platelet Count 457 K/uL (130-400); RDW Coefficient of Variation 15.8 % (11.5-14.5); RDW Standard Deviation 45.8 fL (36.4-46.3); Red Blood Count 3.67 M/uL (4.20-5.40); White Blood Count 10.35 K/ul (4.8-10.8)
[2023-03-31 14:44] LABS: Albumin Level 3.4 gm/dl (3.4-5.0); BUN Creatinine Ratio 27.1 (10-20); Bilirubin,Total 0.2 mg/dl (0.2-1.0); Calcium 8.6 mg/dl (8.6-10.3); Creatinine Clr Calc Pharmacy 60.9 ml/min; Est GFR (African American) 69.4 ml/min; Est GFR (Non-African American) 59.9 ml/min; Magnesium 1.4 mg/dl (1.7-2.4); Total Protein 6.5 gm/dl (6.0-8.3)
[2023-03-31 14:49] LABS: Troponin I High Sensitivity 5.5 pg/ml (0-14)
[2023-03-31 15:12] LABS: Influenza A virus by PCR Negative (Neg); Influenza B virus by PCR Negative (Neg); RSV by PCR Negative (Neg); SARS CoV2 RNA(COVID-19) Ceph NEGATIVE (Negative)
[2023-03-31] MEDS: MAGNESIUM SULFATE / D5W 1 GM/100 ML BAG IV SCH ×2 (15:49→17:16)
[2023-03-31] MEDS ORDERED: oxyBUTYnin chloride 5 MG TAB PO PRN (16:03)
[2023-03-31] MEDS ORDERED: ACETAMINOPHEN 325 MG TAB PO PRN (16:03)
[2023-03-31 16:08] LABS: Appearance Urine Clear (Clear); Bacteria Urine Automated Negative (Negative); Bilirubin Urine Negative (Negative); Blood Urine 3+ (Negative); Color Urine Yellow; Epithelial Cell Urine Auto 20-30 /lpf (0-5); Glucose Urine UA 3+ (Negative); Ketones Urine Negative (Negative); Leukocyte Esterase Urine Trace (Negative); Nitrite Urine Negative (Negative); Protein Urine Negative (Negative); RBC Urine Automated >30 /hpf (0-4); Urobilinogen Urine Negative (Negative)
--- NOTE | 2023-03-31 16:39 | Emergency Department Note ---
History of Present Illness General Chief complaint: Illness Stated complaint: COLD, 93-94 TEMP, CONFUSED Time Seen by Provider: 03/31/23 13:00 History of Present Illness Provider complaint: Chills Onset (ago): day(s) 1 Associated symptoms: + fever/chills 72-year-old female presents emergency department with chills. Patient states she was recently admitted to this facility for sepsis. She reports that she was feeling very cold today and was very confused per the . They took her oral temperature and it was 94 degree Fahrenheit so they became concerned and brought the patient to emergency department. No recent falls. No cough. No dysuria or hematuria. No chest pain or abdominal pain. Home Medications Medication Instructions Recorded Confirmed Type acetaminophen 325 mg tablet 975 mg PO Q6 PRN mild pain or 03/19/23 03/31/23 History fever > 38 C aspirin 81 mg tablet,delayed 81 mg PO DAILY 03/19/23 03/31/23 History release empagliflozin 25 mg tablet 25 mg PO DAILY 03/19/23 03/31/23 History (Jardiance) fenofibrate nanocrystallized 145 145 mg PO QAM 03/19/23 03/31/23 History mg tablet glipizide 10 mg tablet 20 mg PO AMPM 03/19/23 03/31/23 History lisinopril 2.5 mg tablet 2.5 mg PO HS 03/19/23 03/31/23 History metformin 1,000 mg tablet 1,000 mg PO BIDM 03/19/23 03/31/23 History metoprolol tartrate 100 mg tablet 100 mg PO BID 03/19/23 03/31/23 History multivitamin 1 tab PO DAILY 03/19/23 03/31/23 History oxybutynin chloride 5 mg tablet 5 mg PO TID PRN Bladder Spasms 03/19/23 03/31/23 History rosuvastatin 20 mg tablet 20 mg PO QAM 03/19/23 03/31/23 History semaglutide 14 mg tablet (Rybelsus) 14 mg PO DAILYBB 03/19/23 03/31/23 History tamsulosin 0.4 mg capsule 0.4 mg PO QAM 03/19/23 03/31/23 History Allergies Allergy/AdvReac Type Severity Reaction Status Date / Time cephalexin Allergy Unknown Verified 03/31/23 07:57 Past Med/Surg History Medical History Chronic erythremia CKD (chronic kidney disease) stage 3, GFR 30-59 ml/min HLD (hyperlipidemia) HTN (hypertension) 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 Sepsis T2DM (type 2 diabetes mellitus) Surgical History History of extraction of renal calculus Hx of cataract surgery Hx of tubal ligation Family History Father Cancer bone cancer Sister Breast cancer Mother Hypertension Social History Smoking Status: Never smoker Hx Alcohol Use: Yes Alcohol type: wine Hx Substance Use: No Preferred Language: Niuean Communication Ability: Effective Elevator Technician Required: No Beliefs That Will Affect Care: None marital status: Current Living Situation: Spouse Current Living Situation Comment: Lives in a home with Feels Safe at Home: Yes Assistive Devices: None Physical Exam Vital Signs Vital Signs - 24 hr 03/31/23 12:43 03/31/23 13:37 03/31/23 14:00 Temperature 36.4 C L 36.8 C Temperature Source Oral Oral Pulse Rate 85 73 Pulse Rate [Right Brachial] 77 Pulse Rate from SpO2 Sensor Pulse Rhythm Regular Pulse Rhythm [Right Brachial] Regular Pulse Strength [Right Brachial] Normal Respiratory Rate 18 19 18 Respiratory Effort / Characteristics Non-Labored Spontaneous Non-Labored Spontaneous Respiratory Depth Normal Normal Respiratory Pattern Regular Regular Blood Pressure 143/87 H Blood Pressure [Right Arm] 131/61 Blood Pressure Mean 105 Blood Pressure Mean [Right Arm] 84 Blood Pressure Position Sitting Blood Pressure Position [Right Arm] Lying Pulse Oximetry 97 97 96 Oxygen Delivery Method Room Air Room Air Room Air Sepsis Recent Fever Within 48 Hours No Sepsis New/Unexplained Change in Mental Status N/A Sepsis Action Taken by Nursing No Action Required 03/31/23 14:19 03/31/23 14:10 03/31/23 14:50 Temperature Temperature Source Pulse Rate 80 77 106 H Pulse Rate [Right Brachial] Pulse Rate from SpO2 Sensor 76 Pulse Rhythm Pulse Rhythm [Right Brachial] Pulse Strength [Right Brachial] Respiratory Rate 20 21 Respiratory Effort / Characteristics Respiratory Depth Respiratory Pattern Blood Pressure Blood Pressure [Right Arm] Blood Pressure Mean Blood Pressure Mean [Right Arm] Blood Pressure Position Blood Pressure Position [Right Arm] Pulse Oximetry 96 Oxygen Delivery Method Sepsis Recent Fever Within 48 Hours Sepsis New/Unexplained Change in Mental Status Sepsis Action Taken by Nursing 03/31/23 14:51 03/31/23 14:51 03/31/23 15:00 Temperature Temperature Source Pulse Rate 107 H 70 Pulse Rate [Right Brachial] Pulse Rate from SpO2 Sensor 78 Pulse Rhythm Pulse Rhythm [Right Brachial] Pulse Strength [Right Brachial] Respiratory Rate 21 18 Respiratory Effort / Characteristics Respiratory Depth Respiratory Pattern Blood Pressure 152/72 H Blood Pressure [Right Arm] Blood Pressure Mean 98 Blood Pressure Mean [Right Arm] Blood Pressure Position Blood Pressure Position [Right Arm] Pulse Oximetry 95 Oxygen Delivery Method Sepsis Recent Fever Within 48 Hours Sepsis New/Unexplained Change in Mental Status Sepsis Action Taken by Nursing 03/31/23 15:10 03/31/23 15:20 03/31/23 15:30 Temperature Temperature Source Pulse Rate 77 77 80 Pulse Rate [Right Brachial] Pulse Rate from SpO2 Sensor Pulse Rhythm Pulse Rhythm [Right Brachial] Pulse Strength [Right Brachial] Respiratory Rate 26 H 24 28 H Respiratory Effort / Characteristics Respiratory Depth Respiratory Pattern Blood Pressure Blood Pressure [Right Arm] Blood Pressure Mean Blood Pressure Mean [Right Arm] Blood Pressure Position Blood Pressure Position [Right Arm] Pulse Oximetry Oxygen Delivery Method Sepsis Recent Fever Within 48 Hours Sepsis New/Unexplained Change in Mental Status Sepsis Action Taken by Nursing 03/31/23 15:40 Temperature Temperature Source Pulse Rate 80 Pulse Rate [Right Brachial] Pulse Rate from SpO2 Sensor Pulse Rhythm Pulse Rhythm [Right Brachial] Pulse Strength [Right Brachial] Respiratory Rate 19 Respiratory Effort / Characteristics Respiratory Depth Respiratory Pattern Blood Pressure Blood Pressure [Right Arm] Blood Pressure Mean Blood Pressure Mean [Right Arm] Blood Pressure Position Blood Pressure Position [Right Arm] Pulse Oximetry Oxygen Delivery Method Sepsis Recent Fever Within 48 Hours Sepsis New/Unexplained Change in Mental Status Sepsis Action Taken by Nursing Physical Exam GENERAL: oriented to person, place, and time. appears well-developed and well- nourished. HENT: Exam performed. - Head: Normocephalic and atraumatic. EYES: Conjunctivae and EOM are normal. Right eye exhibits no discharge. Left eye exhibits no discharge. No scleral icterus. NECK: Normal range of motion. Neck supple. No JVD present. CV: Normal rate, regular rhythm, normal heart sounds and intact distal pulses. There is no peripheral edema. Palpable radial pulses bue. PULM/CHEST: Effort normal and breath sounds normal. No respiratory distress. No stridor. no wheezes. no rales. ABD: The abdomen is soft. There is no tenderness. NEURO: Motor and sensation grossly intact. SKIN: Skin is warm and dry. He is not diaphoretic. PSYCH: normal mood and affect. Behavior is normal. Judgment and thought content normal. Course Course 1300: The patient was evaluated in room C9. A complete history and physical exam was performed Administered Medications Magnesium Sulfate/Dextrose (Magnesium Sulfate / D5w) 1 gm in 100 mls @ 100 mls/hr IV Q1H [facility] Stop: 03/31/23 17:08 Last Admin: 03/31/23 15:49 Dose: 100 mls/hr Documented By: GEOFFREY Discontinued Medications Sodium Chloride (Nss 1000ml) 1,000 mls @ 999 mls/hr IV .Q1H1M [facility] Stop: 03/31/23 14:00 Last Admin: 03/31/23 14:13 Dose: 999 mls/hr Documented By: GEOFFREY Medical Decision Making Medical Records Attestation: I reviewed the patient's medical records. External medical records reviewed. Patient was admitted from March 19 March 26, 2023. At that time the patient was admitted for sepsis with cultures that grew out Purvi. Patient was treated with Amphotericin inpatient through March 26 and then started March 27 started on function which she is supposed to finish on April 05, 2023. Patient is having infusions done at the [facility] for this. Laboratory Data Attestation: I reviewed the patient's lab results. 03/31/23 13:56 03/31/23 13:56 Lab Results 03/31/23 03/31/23 03/31/23 Range/Units 13:56 13:56 13:56 WBC 10.35 (4.8-10.8) K/ul RBC 3.67 L (4.20-5.40) M/uL Hgb 9.3 L (12.0-16.0) g/dl Hct 29.1 L (37.0-47.0) % MCV 79.3 L (80.0-100.0) fL MCH 25.3 (25.0-34.0) pg MCHC 32.0 (32.0-36.0) g/dL RDW Std Deviation 45.8 (36.4-46.3) fL RDW Coeff of Jomar 15.8 H (11.5-14.5) % Plt Count 457 H (130-400) K/uL MPV 9.2 L (9.4-12.4) fL Immature Gran % (Auto) 1.1 % Neut % (Auto) 81.4 % Lymph % (Auto) 8.8 % [place] % (Auto) 7.9 % Eos % (Auto) 0.3 % Baso % (Auto) 0.5 % Neut # (Auto) 8.43 H (1.40-6.50) K/uL Lymph # (Auto) 0.91 L (1.2-3.4) K/uL [place] # (Auto) 0.82 H (0.11-0.59) K/uL Eos # (Auto) 0.03 (0-0.50) K/uL Baso # (Auto) 0.05 (0-0.2) K/uL Immature Gran # (Auto) 0.11 (0.01-0.20) K/uL Sodium 138 (136-145) mmol/L Potassium 4.0 (3.5-5.1) mmol/L Chloride 104 (98-107) mmol/L Carbon Dioxide 25 (21-32) mmol/L Anion Gap 9 (3-11) BUN 26 H (6-23) mg/dl Creatinine 0.96 (0.6-1.2) mg/dl Est Cr Clr Drug Dosing 60.9 ml/min Est GFR ( Amer) 69.4 ml/min Est GFR (Non-Af Amer) 59.9 ml/min BUN/Creatinine Ratio 27.1 H (10-20) Glucose 126 H (70-99(Fasting)) mg/dl Lactate 1.0 (0.4-2.0) mmol/L Calcium 8.6 (8.6-10.3) mg/dl Magnesium 1.4 L (1.7-2.4) mg/dl Total Bilirubin 0.2 (0.2-1.0) mg/dl Direct Bilirubin 0.0 (0-0.2) mg/dl AST 14 (13-39) U/L ALT 11 (7-52) U/L Alkaline Phosphatase 42 (34-104) U/L Troponin I High Sens 5.5 (0-14) pg/ml Total Protein 6.5 (6.0-8.3) gm/dl Albumin 3.4 (3.4-5.0) gm/dl Procalcitonin (0-0.5) ng/ml Urine Color Urine Appearance (Clear) Urine pH (4.5-7.5) Ur Specific [place] (1.000-1.030) Urine Protein (Negative) Urine Glucose (UA) (Negative) Urine Ketones (Negative) Urine Blood (Negative) Urine Nitrite (Negative) Urine Bilirubin (Negative) Urine Urobilinogen (Negative) Ur Leukocyte Esterase (Negative) Urine WBC (Auto) (0-5) /hpf Urine RBC (Auto) (0-4) /hpf U Hyaline Cast (Auto) (0-5) /lpf U Epithel Cells (Auto) (0-5) /lpf Urine Bacteria (Auto) (Negative) SARS-CoV-2 (PCR) (Negative) Influenza Type A (PCR) (Neg) Influenza Type B (PCR) (Neg) RSV (RT-PCR) (Neg) 03/31/23 03/31/23 03/31/23 Range/Units 13:56 13:56 Unknown WBC (4.8-10.8) K/ul RBC (4.20-5.40) M/uL Hgb (12.0-16.0) g/dl Hct (37.0-47.0) % MCV (80.0-100.0) fL MCH (25.0-34.0) pg MCHC (32.0-36.0) g/dL RDW Std Deviation (36.4-46.3) fL RDW Coeff of Jomar (11.5-14.5) % Plt Count (130-400) K/uL MPV (9.4-12.4) fL Immature Gran % (Auto) % Neut % (Auto) % Lymph % (Auto) % [place] % (Auto) % Eos % (Auto) % Baso % (Auto) % Neut # (Auto) (1.40-6.50) K/uL Lymph # (Auto) (1.2-3.4) K/uL [place] # (Auto) (0.11-0.59) K/uL Eos # (Auto) (0-0.50) K/uL Baso # (Auto) (0-0.2) K/uL Immature Gran # (Auto) (0.01-0.20) K/uL Sodium (136-145) mmol/L Potassium (3.5-5.1) mmol/L Chloride (98-107) mmol/L Carbon Dioxide (21-32) mmol/L Anion Gap (3-11) BUN (6-23) mg/dl Creatinine (0.6-1.2) mg/dl Est Cr Clr Drug Dosing ml/min Est GFR ( Amer) ml/min Est GFR (Non-Af Amer) ml/min BUN/Creatinine Ratio (10-20) Glucose (70-99(Fasting)) mg/dl Lactate (0.4-2.0) mmol/L Calcium (8.6-10.3) mg/dl Magnesium (1.7-2.4) mg/dl Total Bilirubin (0.2-1.0) mg/dl Direct Bilirubin (0-0.2) mg/dl AST (13-39) U/L ALT (7-52) U/L Alkaline Phosphatase (34-104) U/L Troponin I High Sens (0-14) pg/ml Total Protein (6.0-8.3) gm/dl Albumin (3.4-5.0) gm/dl Procalcitonin < 0.05 (0-0.5) ng/ml Urine Color Yellow Urine Appearance Clear (Clear) Urine pH 6.0 (4.5-7.5) Ur Specific [place] 1.010 (1.000-1.030) Urine Protein Negative (Negative) Urine Glucose (UA) 3+ H (Negative) Urine Ketones Negative (Negative) Urine Blood 3+ H (Negative) Urine Nitrite Negative (Negative) Urine Bilirubin Negative (Negative) Urine Urobilinogen Negative (Negative) Ur Leukocyte Esterase Trace H (Negative) Urine WBC (Auto) 1-5 (0-5) /hpf Urine RBC (Auto) >30 H (0-4) /hpf U Hyaline Cast (Auto) 1-5 (0-5) /lpf U Epithel Cells (Auto) 20-30 H (0-5) /lpf Urine Bacteria (Auto) Negative (Negative) SARS-CoV-2 (PCR) NEGATIVE (Negative) Influenza Type A (PCR) Negative (Neg) Influenza Type B (PCR) Negative (Neg) RSV (RT-PCR) Negative (Neg) Imaging Data Attestation: I personally reviewed and interpreted this imaging study as follows: My Impression: Chest x-ray negative. Airway clear. No pneumothorax. No consolidation. No cardiomegaly or cephalization.. No free air under the diaphragm. No fractures of the skeletal structures. Radiologist's Impression: Chest X-Ray 03/31/23 13:00 XR chest 1V portable HISTORY: 72 years-old Female Sepsis acute weakness with altered mental status COMPARISON: CT 03/20/2023 TECHNIQUE: AP view of the chest FINDINGS: Cardiac silhouette is enlarged. No pneumothorax, pleural effusion, airspace consolidation or pulmonary edema. Bones of the chest appear grossly intact. Mild chronic interstitial coarsening of the lung bases. IMPRESSION: No acute process. ACT 112: Negative or not required by law. The above report was generated using voice recognition software. It may contain grammatical, syntax or spelling errors. Electronically signed by: Goldy Darling M.D. 03/31/2023 1:[address] 03/31/23 13:16 CT head/brain wo con CLINICAL HISTORY: 72 years-old Female with dizziness weakness. Acute dizziness with weakness TECHNIQUE: Multiple axial CT images of the head were obtained without contrast. A dose lowering technique was utilized adhering to the principles of ALARA. CT DOSE: 823.94 mGycm COMPARISON: None. FINDINGS: No acute intracranial hemorrhage, midline shift, intracranial mass, hydrocephalus, territorial ischemia or abnormal extra-axial collection. Involutional changes with chronic microvascular ischemic disease. The calvarium is intact. Hyperostosis frontalis interna. Prior bilateral lens repair. The paranasal sinuses, mastoid air cells, and middle ear cavities are clear. IMPRESSION: No acute intracranial abnormality. ACT 112: Negative or not required by law. The above report was generated using voice recognition software. It may contain grammatical, syntax or spelling errors. Electronically signed by: Goldy Darling M.D. 03/31/2023 2:28 PM ECG Data Attestation: I personally reviewed and interpreted this ECG as follows: Indication: + weakness Rate (beats per minute): 73 Rhythm: + normal sinus ECG Intervals/blocks: + Normal QRS, + Normal MI and + Normal QT-c ECG ST segments: + Normal ST segments MDM Narrative Cardiac monitoring: An order was placed for continuous cardiac monitoring. The monitor shows a rate of 70 with sinus rhythm interpreted by me Vital signs stable. Patient's temperature within normal limits in the emergency department. Labs and imaging are within normal limits with exception of magnesium 1.4. No evidence of sepsis. [facility] and magnesium repletion. In the emergency department Impression & Plan Hypomagnesemia Discharge Plan Visit Data Chief Complaint: Illness Stated Complaint: COLD, 93-94 TEMP, CONFUSED ED Provider: Bandar Lea Discharge Problem: Hypomagnesemia Patient Disposition: Admitted As Inpatient Discharge Instructions Interventions: ED Discharge Assessment Last Done: 03/31/23 16:28 Forms Stand Alone Forms: [facility] [employer] Prescriptions Prescriptions: No Action glipizide 10 mg tablet 20 mg PO AMPM Rx Instructions: take with meals lisinopril 2.5 mg tablet 2.5 mg PO HS Hold Instructions: Resume on 04/02/23. Until seen by PCP rosuvastatin 20 mg tablet 20 mg PO QAM Rybelsus 14 mg tablet 14 mg PO DAILYBB acetaminophen 325 mg tablet 975 mg PO Q6 PRN (Reason: mild pain or fever > 38 C) aspirin 81 mg Tablet,Delayed Release (Dr/Ec) 81 mg PO DAILY fenofibrate nanocrystallized 145 mg tablet 145 mg PO QAM metformin 1,000 mg tablet 1,000 mg PO BIDM Jardiance 25 mg tablet 25 mg PO DAILY metoprolol tartrate 100 mg tablet 100 mg PO BID Hold Instructions: Resume on 04/02/23. until seen by PCP tamsulosin 0.4 mg Capsule 0.4 mg PO QAM Rx Instructions: new order oxybutynin chloride 5 mg tablet 5 mg PO TID PRN (Reason: Bladder Spasms) multivitamin Tablet 1 tab PO DAILY Referrals Referrals: Lulu Gavlez, [Primary Care Provider] -
[2023-03-31] MEDS ORDERED: GLUCOSE 10 TAB/TUBE PO PRN (17:06)
[2023-03-31] MEDS ORDERED: CARBOHYDRATES FOR HYPOGLYCEMIA PO PRN (17:06)
[2023-03-31] MEDS ORDERED: DEXTROSE 50% 50 ML SYRINGE IV PRN (17:06)
[2023-03-31] MEDS ORDERED: GLUCAGON FOR INJ 1 MG VIAL SQ PRN (17:06)
[2023-03-31] MEDS ORDERED: GLUCOSE 40% GEL 15 GM TUBE PO PRN (17:06)
--- NOTE | 2023-03-31 17:22 | History & Physical Report ---
Date of Service March 31, 2023 Assessment & Plan (1) Dizziness: (2) Fungemia: (3) Ureteral stent present: (4) S/P urological surgery: (5) Anemia: (6) Polycythemia vera: (7) HTN (hypertension): (8) HLD (hyperlipidemia): (9) T2DM (type 2 diabetes mellitus): Plan Episode of dizziness with feeling hot and cold + recent hx of sepsis 2/2 Fungemia: -symptoms resolved ---- could be 2/2 SE from receiving IV capsofungin -CT head and CXR: no acute finding -however due to recent hx of sepsis will get UA, UCx and BCx ---- UA: trace leuk with epithel cells (not suspecting UTI) ---- UCx sent -VSS and normal PE -will continue Capsofungin 50mg IV daily until 04/05 -pt likely can be discharged if the BCx and UCx are neg Chronic anemia with slight drop in Hgb: -pts baseline hgb is around 10 - hgb today is 9.3 -no s/s of GI bleed however due to drop in hgb will get FOBT and Protonix IV BID - if repeat hgb is stable with neg FOBT then can d/c protonix Recent hx of nephrolithiasis with presence of L ureteral stent: -no acute symptoms -continue Flomax - outpt urology follow up after discharge HTN: -BP is slightly elevated -will continue home Meds DMII/HLD: -continue home meds Diet: DM II DVT PPx: SCD due to anemia Code Status: FULL CODE Emergency Contact: (Ray: [phone]) Admission and Anticipated Discharge Date Admission Date: March 31, 2023 History of Present Illness Primary Care Provider: Lulu Galvez DO Pt is a 72 y/o F with hx of DMII, HTN, CKD III (bl Cr: ~1) Polycythemia Vera with chronic anemia (bl hgb: ~10), recent hx of urological procedure (stents exchange and kidney stone removal) complicated with sepsis 2/2 Purvi and yeast infection in the blood. Pt was discharged from the [facility] on 03/26 with Capsofungin 50mg IV daily until 04/05. Today pt received her treatment at [facility]. After the treatment she was going home and had brief episode of feeling cold/hot and dizziness (lasted for 30 mins). At bedside: pt denied any chills, CP, abd pain, N/V, bloody bowel movement, dark stool. She has been taking Lisinopril and Metoprolol. Denied any mid back pain, hematuria, vaginal discharge or dysuria Allergies Allergy/AdvReac Type Severity Reaction Status Date / Time cephalexin Allergy Unknown Verified 03/31/23 07:57 Home Medications Medication Instructions Recorded Confirmed Type acetaminophen 325 mg tablet 975 mg PO Q6 PRN mild pain or 03/19/23 03/31/23 History fever > 38 C aspirin 81 mg tablet,delayed 81 mg PO DAILY 03/19/23 03/31/23 History release empagliflozin 25 mg tablet 25 mg PO DAILY 03/19/23 03/31/23 History (Jardiance) fenofibrate nanocrystallized 145 145 mg PO QAM 03/19/23 03/31/23 History mg tablet glipizide 10 mg tablet 20 mg PO AMPM 03/19/23 03/31/23 History lisinopril 2.5 mg tablet 2.5 mg PO HS 03/19/23 03/31/23 History metformin 1,000 mg tablet 1,000 mg PO BIDM 03/19/23 03/31/23 History metoprolol tartrate 100 mg tablet 100 mg PO BID 03/19/23 03/31/23 History multivitamin 1 tab PO DAILY 03/19/23 03/31/23 History oxybutynin chloride 5 mg tablet 5 mg PO TID PRN Bladder Spasms 03/19/23 03/31/23 History rosuvastatin 20 mg tablet 20 mg PO QAM 03/19/23 03/31/23 History semaglutide 14 mg tablet (Rybelsus) 14 mg PO DAILYBB 03/19/23 03/31/23 History tamsulosin 0.4 mg capsule 0.4 mg PO QAM 03/19/23 03/31/23 History Past Med/Surg History Medical History Chronic erythremia CKD (chronic kidney disease) stage 3, GFR 30-59 ml/min HLD (hyperlipidemia) HTN (hypertension) 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 Sepsis T2DM (type 2 diabetes mellitus) Surgical History History of extraction of renal calculus Hx of cataract surgery Hx of tubal ligation Family History Father Cancer bone cancer Sister Breast cancer Mother Hypertension Social History Smoking Status: Never smoker Hx Alcohol Use: Yes Alcohol type: wine Hx Substance Use: No Preferred Language: Chinese Communication Ability: Effective 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 NAD, well developed, well nourished, average body habitus HEENT:. Normocephalic and atraumatic, Normal Conjunctiva, EOMI, Sclera is non- icteric Lungs:. No signs of respiratory distress, CTA, no wheezing or crackles Heart:. Normal S1, S2, no murmur Abdominal:. ND, Soft, NT MSK:. No deformities of UE and LE, No leg edema Psych:. AAOx3, normal affect Results & Data Results & Data Vital Signs (Past 12 Hours) Vital Signs Temp Pulse Pulse Resp BP BP Pulse Ox 03/31/23 15:40 80 19 03/31/23 15:30 80 28 H 03/31/23 15:20 77 24 03/31/23 15:10 77 26 H 03/31/23 15:00 70 18 95 03/31/23 14:51 107 H 21 03/31/23 14:51 152/72 H 03/31/23 14:50 106 H 21 03/31/23 14:10 77 20 96 03/31/23 14:19 80 03/31/23 14:00 36.8 C 77 18 131/61 96 03/31/23 13:37 73 19 97 03/31/23 12:43 36.4 C L 85 18 143/87 H 97 O2 Del Method 03/31/23 15:40 03/31/23 15:30 03/31/23 15:20 03/31/23 15:10 03/31/23 15:00 03/31/23 14:51 03/31/23 14:51 03/31/23 14:50 03/31/23 14:10 03/31/23 14:19 03/31/23 14:00 Room Air 03/31/23 13:37 Room Air 03/31/23 12:43 Room Air Laboratory Results Short CBC 03/31/23 Range/Units 13:56 WBC 10.35 (4.8-10.8) K/ul Hgb 9.3 L (12.0-16.0) g/dl Hct 29.1 L (37.0-47.0) % Plt Count 457 H (130-400) K/uL BMP 03/31/23 13:56 Sodium 138 Potassium 4.0 Chloride 104 Carbon Dioxide 25 BUN 26 H Creatinine 0.96 Glucose 126 H Calcium 8.6 Liver Function 03/31/23 Range/Units 13:56 Total Bilirubin 0.2 (0.2-1.0) mg/dl Direct Bilirubin 0.0 (0-0.2) mg/dl AST 14 (13-39) U/L ALT 11 (7-52) U/L Alkaline Phosphatase 42 (34-104) U/L Albumin 3.4 (3.4-5.0) gm/dl Urine 03/31/23 Range/Units Unknown Urine Color Yellow Urine Appearance Clear (Clear) Urine pH 6.0 (4.5-7.5) Ur Specific [place] 1.010 (1.000-1.030) Urine Protein Negative (Negative) Urine Glucose (UA) 3+ H (Negative) Diagnostic Findings Chest X-Ray 03/31/23 13:00 XR chest 1V portable HISTORY: 72 years-old Female Sepsis acute weakness with altered mental status COMPARISON: CT 03/20/2023 TECHNIQUE: AP view of the chest FINDINGS: Cardiac silhouette is enlarged. No pneumothorax, pleural effusion, airspace consolidation or pulmonary edema. Bones of the chest appear grossly intact. Mild chronic interstitial coarsening of the lung bases. IMPRESSION: No acute process. ACT 112: Negative or not required by law. The above report was generated using voice recognition software. It may contain grammatical, syntax or spelling errors. Electronically signed by: Goldy Darling M.D. 03/31/2023 1:[address] 03/31/23 13:16 CT head/brain wo con CLINICAL HISTORY: 72 years-old Female with dizziness weakness. Acute dizziness with weakness TECHNIQUE: Multiple axial CT images of the head were obtained without contrast. A dose lowering technique was utilized adhering to the principles of ALARA. CT DOSE: 823.94 mGycm COMPARISON: None. FINDINGS: No acute intracranial hemorrhage, midline shift, intracranial mass, hydrocephalus, territorial ischemia or abnormal extra-axial collection. Involutional changes with chronic microvascular ischemic disease. The calvarium is intact. Hyperostosis frontalis interna. Prior bilateral lens repair. The paranasal sinuses, mastoid air cells, and middle ear cavities are clear. IMPRESSION: No acute intracranial abnormality. ACT 112: Negative or not required by law. The above report was generated using voice recognition software. It may contain grammatical, syntax or spelling errors. Electronically signed by: Goldy Darling M.D. 03/31/2023 2:28 PM Code Status & VTE Plan VTE Prophylaxis Plan VTE Prophylaxis will be ordered: Yes
[2023-03-31] MEDS: INSULIN ASPART PER UNIT CHARGE SC SCH ×2 (17:49→21:01)
--- NOTE | 2023-03-31 20:49 | Electrocardiogram Report ---
Test Reason : Blood Pressure : / mmHG Vent. Rate : 073 BPM Atrial Rate : 073 BPM P-R Int : 198 ms QRS Dur : 084 ms QT Int : 392 ms P-R-T Axes : 063 035 032 degrees QTc Int : 431 ms Poor data quality, interpretation may be adversely affected Normal sinus rhythm Normal ECG No previous ECGs available Confirmed by Tone Goel ([id number]) on 03/31/2023 8:49:25 PM Referred By: REFERRED SELF Confirmed By:Tone Goel
[2023-03-31] MEDS: lisinopril 2.5 MG TAB PO SCH (21:11)
[2023-03-31] MEDS: PANTOprazole 40 MG in SYRINGE 0 ML IV SCH (21:12)
[2023-03-31] MEDS: METOPROLOL TARTRATE 100 MG TAB PO SCH (21:12)
[2023-03-31] MEDS ORDERED: MELATONIN 3 MG TAB PO PRN (21:59)
[2023-04-01 07:06] LABS: Basophils # (auto) 0.03 K/uL (0-0.2); Basophils % (auto) 0.3 %; Eosinophils # (auto) 0.22 K/uL (0-0.50); Eosinophils % (auto) 2.3 %; Hematocrit (blood only) 28.6 % (37.0-47.0); Hemoglobin 9.2 g/dl (12.0-16.0); Lymphocytes # (auto) 1.12 K/uL (1.2-3.4); Lymphocytes % (auto) 11.8 %; Mean Corpuscular Hemoglobin 25.6 pg (25.0-34.0); Mean Corpuscular Hgb Conc 32.2 g/dL (32.0-36.0); Mean Corpuscular Volume 79.4 fL (80.0-100.0); Monocytes # (auto) 1.22 K/uL (0.11-0.59); Monocytes % (auto) 12.8 %; Neutrophils # (auto) 6.84 K/uL (1.40-6.50); Neutrophils % (auto) 71.8 %; Platelet Count 431 K/uL (130-400); RDW Coefficient of Variation 15.9 % (11.5-14.5); RDW Standard Deviation 45.5 fL (36.4-46.3); White Blood Count 9.53 K/ul (4.8-10.8)
[2023-04-01 07:37] LABS: Albumin Globulin Ratio 1.1 (0.9-2); Albumin Level 3.4 gm/dl (3.4-5.0); BUN Creatinine Ratio 19.4 (10-20); Bilirubin,Total 0.3 mg/dl (0.2-1.0); Calcium 8.6 mg/dl (8.6-10.3); Creatinine Clr Calc Pharmacy 56.4 ml/min; Est GFR (African American) 63.8 ml/min; Globulin 3.2 gm/dl (2.5-4.0); Magnesium 1.8 mg/dl (1.7-2.4); Potassium 4.3 mmol/L (3.5-5.1); Total Protein 6.6 gm/dl (6.0-8.3)
[2023-04-01] MEDS: METOPROLOL TARTRATE 100 MG TAB PO SCH ×2 (08:47→21:15)
[2023-04-01] MEDS: FENOFIBRATE NANOCRYSTALLIZED 145 MG TABLET PO SCH (08:47)
[2023-04-01] MEDS: ROSUVASTATIN CALCIUM 20 MG TAB PO SCH (08:47)
[2023-04-01] MEDS: MULTIVITAMIN TAB PO SCH (08:48)
[2023-04-01] MEDS: PANTOprazole 40 MG in SYRINGE 0 ML IV SCH ×2 (08:48→21:15)
[2023-04-01] MEDS: INSULIN ASPART PER UNIT CHARGE SC SCH ×4 (08:53→20:33)
[2023-04-01] MEDS: CASPOFUNGIN 50 MG in SODIUM CHLORIDE 0.9% 250 ML IV SCH (08:54)
[2023-04-01] MEDS ORDERED: TAMSULOSIN HCL 0.4 MG CAP PO SCH (09:00)
[2023-04-01 09:42] LABS: Vitamin B12 259 pg/ml (180-914)
--- NOTE | 2023-04-01 10:36 | Hospitalist Progress Note ---
Date of Service April 01, 2023 Assessment & Plan (1) Dizziness: (2) Fungemia: (3) Ureteral stent present: (4) S/P urological surgery: (5) Anemia: (6) Polycythemia vera: (7) HTN (hypertension): (8) HLD (hyperlipidemia): (9) T2DM (type 2 diabetes mellitus): Plan Episode of dizziness with feeling hot and cold + recent hx of sepsis 2/2 Fungemia: -symptoms resolved -CT head and CXR: no acute finding ---- UA: trace leuk with epithel cells (not suspecting UTI) -- Dizziness resolved Possibly from Flomax, discontinue Flomax Rule out underlying infection, blood culture and urine culture pending, continue caspofungin day number 6 out of 7 Check orthostatic vital signs, encouraged to increase oral fluid intake Hypoglycemia likely, patient had breakfast and lunch Chronic anemia -pts baseline hgb is around 10 Hemoglobin 9.2, baseline 10 Check anemia panel On Protonix 40 mg twice daily Monitor closely Recent hx of nephrolithiasis with presence of L ureteral stent: -no acute symptoms - outpt urology follow up after discharge HTN: -BP 140/66 -will continue home Meds DMII/HLD: -continue home meds Diet: DM II DVT PPx: SCD due to anemia Code Status: FULL CODE Disposition Anticipate discharge to home when medically stable Last dose of caspofungin IV March Admission and Anticipated Discharge Date Admission Date: March 31, 2023 Subjective Follow-up for dizziness spells, etc. Seen resting in bed, comfortable, not in distress In good spirits States she feels fine overall today No recurrence of dizziness, sensation of feeling hot or cold Denies chest pain, palpitations, shortness of breath No fevers or chills at home No problems with urination No other symptoms Review of Systems Review of Systems: all noted and negative except for above Physical Exam Physical Exam: General- oriented x 3, not in distress, speaks in sentences with no effort or accessory muscle use Eyes- anicteric Neck- no JVD Lungs- clear breath sounds bilaterally, no rales/wheezes Heart- normal rate, regular rhythm; no murmurs Abdomen- normal bowel sounds, nondistended, soft, nontender Extremities- no pretibial edema, no calf tenderness Neuro- alert, oriented x 3; no gross focal neurologic deficits Skin- warm & dry Results & Data Results & Data Vital Signs (Past 12 Hours) Vital Signs Temp Pulse Pulse Resp BP BP Pulse Ox 04/01/23 08:17 57 L 04/01/23 08:13 36.9 C 54 L 18 140/66 97 04/01/23 03:52 37 C 59 L 16 127/69 95 04/01/23 01:16 62 03/31/23 23:46 37.3 C 67 18 114/50 L 92 O2 Del Method 04/01/23 08:17 04/01/23 08:13 Room Air 04/01/23 03:52 Room Air 04/01/23 01:16 03/31/23 23:46 Room Air all noted and reviewed including below
[2023-04-01] MEDS: lisinopril 2.5 MG TAB PO SCH (21:13)
[2023-04-02] MEDS: PANTOprazole 40 MG in SYRINGE 0 ML IV SCH (08:30)
[2023-04-02] MEDS: FENOFIBRATE NANOCRYSTALLIZED 145 MG TABLET PO SCH (08:30)
[2023-04-02] MEDS: ROSUVASTATIN CALCIUM 20 MG TAB PO SCH (08:30)
[2023-04-02] MEDS: METOPROLOL TARTRATE 100 MG TAB PO SCH (08:30)
[2023-04-02] MEDS: MULTIVITAMIN TAB PO SCH (08:30)
[2023-04-02] MEDS: INSULIN ASPART PER UNIT CHARGE SC SCH ×2 (08:32→12:14)
[2023-04-02] MEDS: CASPOFUNGIN 50 MG in SODIUM CHLORIDE 0.9% 250 ML IV SCH (08:33)
[2023-04-02 10:44] LABS: Basophils # (auto) 0.06 K/uL (0-0.2); Eosinophils # (auto) 0.27 K/uL (0-0.50); Eosinophils % (auto) 4.3 %; Hematocrit (blood only) 26.8 % (37.0-47.0); Hemoglobin 8.5 g/dl (12.0-16.0); Immature Granulocytes # (auto) 0.04 K/uL (0.01-0.20); Immature Granulocytes % (auto) 0.6 %; Lymphocytes # (auto) 0.79 K/uL (1.2-3.4); Lymphocytes % (auto) 12.6 %; Mean Corpuscular Hemoglobin 25.5 pg (25.0-34.0); Mean Corpuscular Hgb Conc 31.7 g/dL (32.0-36.0); Mean Corpuscular Volume 80.5 fL (80.0-100.0); Mean Platelet Volume 9.5 fL (9.4-12.4); Monocytes # (auto) 0.86 K/uL (0.11-0.59); Monocytes % (auto) 13.7 %; Neutrophils # (auto) 4.27 K/uL (1.40-6.50); Neutrophils % (auto) 67.8 %; Platelet Count 368 K/uL (130-400); RDW Coefficient of Variation 15.8 % (11.5-14.5); RDW Standard Deviation 46.5 fL (36.4-46.3); Red Blood Count 3.33 M/uL (4.20-5.40); White Blood Count 6.29 K/ul (4.8-10.8)
[2023-04-02 11:04] LABS: BUN Creatinine Ratio 18.9 (10-20); Calcium 8.3 mg/dl (8.6-10.3); Creatinine Clr Calc Pharmacy 54.7 ml/min; Est GFR (African American) 61.6 ml/min; Est GFR (Non-African American) 53.2 ml/min; Magnesium 1.5 mg/dl (1.7-2.4); Potassium 3.9 mmol/L (3.5-5.1)
[2023-04-02] MEDS ORDERED: MAGNESIUM OXIDE 400 MG TAB PO SCH (11:45)
--- NOTE | 2023-04-02 16:21 | Hospitalist Progress Note ---
Date of Service April 02, 2023 Assessment & Plan (1) Dizziness: (2) Fungemia: (3) Ureteral stent present: (4) S/P urological surgery: (5) Anemia: (6) Polycythemia vera: (7) HTN (hypertension): (8) HLD (hyperlipidemia): (9) T2DM (type 2 diabetes mellitus): Plan Episode of dizziness recent hx of sepsis 2/2 Fungemia Recent hx of nephrolithiasis with presence of L ureteral stent: --symptoms resolved -- CT head and CXR: no acute finding ---- UA: trace leuk with epithel cells (not suspecting UTI) -- Dizziness resolved Possibly from Flomax, discontinue Flomax Urine and blood cultures negative x48 hours encouraged to increase oral fluid intake -- Follow-up with PCP in 1 week Patient completed 1 week of Amphotericin as inpatient and also 1 week of caspofungin Will have ureteral stent procedure tomorrow at [facility] Needs ophthalmology follow-up to rule out fungal endophthalmitis in 1 to 2 weeks Chronic anemia -pts baseline hgb is around 10 Hemoglobin stable around 9 Repeat CBC on follow-up with PCP in 1 week Hypomagnesemia Magnesium 1.5 Magnesium supplement x1 week Follow-up closely HTN: -will continue home Meds DMII/HLD: -continue home meds Diet: DM II DVT PPx: SCD due to anemia Code Status: FULL CODE Disposition Discharge to home Follow-up with PCP in 1 week plan of care discussed with patient and her in detail and at length all questions answered they are understanding, agreeable, comfortable with the plan of care Admission and Anticipated Discharge Date Admission Date: March 31, 2023 Subjective Follow-up for dizziness, etc. Seen resting in bed, sitting up, not in distress, in good spirits States she feels fine overall Feeling better overall Ambulating in the hallways with no problems Denies dizziness, lightheadedness, chest pain, shortness of breath, palpitations, abdominal pain, nausea vomiting Denies urinary symptoms, fevers or chills No other symptoms States she is ready for discharge today Review of Systems Review of Systems: all noted and negative except for above Physical Exam Physical Exam: General- oriented x 3, not in distress, speaks in sentences with no effort or accessory muscle use Eyes- anicteric Neck- no JVD Lungs- clear breath sounds bilaterally, no rales/wheezes Heart- normal rate, regular rhythm; no murmurs Abdomen- normal bowel sounds, nondistended, soft, nontender Extremities- no pretibial edema, no calf tenderness Neuro- alert, oriented x 3; no gross focal neurologic deficits Skin- warm & dry Results & Data Results & Data Vital Signs (Past 12 Hours) Vital Signs Temp Pulse Pulse Pulse Resp BP BP 04/02/23 14:17 36.6 C 50 L 77 18 125/67 125/72 04/02/23 12:01 36.6 C 50 L 18 125/67 04/02/23 08:10 36.3 C L 61 17 144/70 H 04/02/23 07:33 51 L Pulse Ox O2 Del Method 04/02/23 14:17 97 04/02/23 12:01 97 Room Air 04/02/23 08:10 96 Room Air 04/02/23 07:33 all noted and reviewed including below
--- NOTE | 2023-04-02 18:55 | Discharge Summary ---
Discharge Summary Date of Service April 02, 2023 Notes For Next Care Provider Medication Changes From Visit New medication: Magnesium supplement Discontinued medication: Flomax Admission HPI Per Admitting Provider Pt is a 72 y/o F with hx of DMII, HTN, CKD III (bl Cr: ~1) Polycythemia Vera with chronic anemia (bl hgb: ~10), recent hx of urological procedure (stents exchange and kidney stone removal) complicated with sepsis 2/2 Purvi and yeast infection in the blood. Pt was discharged from the [facility] on 03/26 with Capsofungin 50mg IV daily until 04/05. Today pt received her treatment at [facility]. After the treatment she was going home and had brief episode of feeling cold/hot and dizziness (lasted for 30 mins). At bedside: pt denied any chills, CP, abd pain, N/V, bloody bowel movement, dark stool. She has been taking Lisinopril and Metoprolol. Denied any mid back pain, hematuria, vaginal discharge or dysuria Principal Dx & Hospital Course #1 = Principal Diagnosis (1) Dizziness: (2) Fungemia: (3) Ureteral stent present: (4) S/P urological surgery: (5) Anemia: (6) Polycythemia vera: (7) HTN (hypertension): (8) HLD (hyperlipidemia): (9) T2DM (type 2 diabetes mellitus): Plan Episode of dizziness recent hx of sepsis 2/2 Fungemia Recent hx of nephrolithiasis with presence of L ureteral stent: --symptoms resolved -- CT head and CXR: no acute finding ---- UA: trace leuk with epithel cells (not suspecting UTI) -- Dizziness resolved Possibly from Flomax, discontinue Flomax Urine and blood cultures negative x48 hours encouraged to increase oral fluid intake -- Follow-up with PCP in 1 week Patient completed 1 week of Amphotericin as inpatient and also 1 week of caspofungin Will have ureteral stent procedure tomorrow at [facility] Needs ophthalmology follow-up to rule out fungal endophthalmitis in 1 to 2 weeks Chronic anemia -pts baseline hgb is around 10 Hemoglobin stable around 9 Repeat CBC on follow-up with PCP in 1 week Hypomagnesemia Magnesium 1.5 Magnesium supplement x1 week Follow-up closely HTN: -will continue home Meds DMII/HLD: -continue home meds Diet: DM II DVT PPx: SCD due to anemia Code Status: FULL CODE Disposition Discharge to home Follow-up with PCP in 1 week plan of care discussed with patient and her in detail and at length all questions answered they are understanding, agreeable, comfortable with the plan of care Discharge Exam General- oriented x 3, not in distress, speaks in sentences with no effort or accessory muscle use Eyes- anicteric Neck- no JVD Lungs- clear breath sounds bilaterally, no rales/wheezes Heart- normal rate, regular rhythm; no murmurs Abdomen- normal bowel sounds, nondistended, soft, nontender Extremities- no pretibial edema, no calf tenderness Neuro- alert, oriented x 3; no gross focal neurologic deficits Skin- warm & dry Updated Medication List Medication Instructions Recorded Confirmed Type acetaminophen 325 mg tablet 975 mg PO Q6 PRN mild pain or 03/19/23 03/31/23 History fever > 38 C aspirin 81 mg tablet,delayed 81 mg PO DAILY 03/19/23 03/31/23 History release empagliflozin 25 mg tablet 25 mg PO DAILY 03/19/23 03/31/23 History (Jardiance) fenofibrate nanocrystallized 145 145 mg PO QAM 03/19/23 03/31/23 History mg tablet glipizide 10 mg tablet 20 mg PO AMPM 03/19/23 03/31/23 History lisinopril 2.5 mg tablet 2.5 mg PO HS 03/19/23 03/31/23 History metformin 1,000 mg tablet 1,000 mg PO BIDM 03/19/23 03/31/23 History metoprolol tartrate 100 mg tablet 100 mg PO BID 03/19/23 03/31/23 History multivitamin 1 tab PO DAILY 03/19/23 03/31/23 History oxybutynin chloride 5 mg tablet 5 mg PO TID PRN Bladder Spasms 03/19/23 03/31/23 History rosuvastatin 20 mg tablet 20 mg PO QAM 03/19/23 03/31/23 History semaglutide 14 mg tablet (Rybelsus) 14 mg PO DAILYBB 03/19/23 03/31/23 History magnesium oxide 400 mg (241.3 mg 400 mg PO BID 10 days #20 tabs 04/02/23 Rx magnesium) tablet Hospital Stay Data Consultations 03/31/23 14:54 ED Decision to Admit Stat Diagnostic Imagining Performed 03/31/23 13:16 CT head/brain wo con Stat FINDINGS: No acute intracranial hemorrhage, midline shift, intracranial mass, hydrocephalus, territorial ischemia or abnormal extra-axial collection. Involutional changes with chronic microvascular ischemic disease. The calvarium is intact. Hyperostosis frontalis interna. Prior bilateral lens repair. The paranasal sinuses, mastoid air cells, and middle ear cavities are clear. IMPRESSION: No acute intracranial abnormality. ACT 112: Negative or not required by law. Pending Results Patient Have Any Pending Studies at Discharge: No Discharge Instructions Given to Patient (Per Discharging Provider) PLEASE REFER TO YOUR NEW MEDICATION LIST AND FOLLOW INSTRUCTIONS CAREFULLY. YOUR NEW MEDICATIONS INCLUDE: Magnesium supplement Please stop taking Tamsulosin (Flomax) as this medication could have contributed to your dizziness. Please drink plenty of fluids at least 6 glasses of water per day. PLEASE CALL YOUR PRIMARY CARE PHYSICIAN OR RETURN TO THE ER IF WITH WORSENING OF SYMPTOMS, INCLUDING Dizziness, weakness, fevers or chills, abdominal pain, problems with urination, etc. FOLLOW-UP WITH YOUR UROLOGIST TOMORROW FOR URETERAL STENT PROCEDURE. FOLLOW UP WITH PRIMARY CARE PHYSICIAN OUTLINED ABOVE. FOLLOW-UP WITH THE [facility] THIS MONTH. Total Time Total Time Spent Total Time Spent (In Minutes): >30 minutes
== END 2023-04-02 15:01 | disposition home or self-care (01) | DRG 641 ==
LOC: ED 12:37 → SUATTDRO 15:26 → 2W 15:26